=== PATIENT | male | born 1950 | race Caucasian/White ===

== ENCOUNTER 2024-01-02 10:02 | Emergency (ER) | payer MEDICARE, OTHER, SELFPAY ==
[2024-01-02 10:11] VITALS: BP 148/100
[2024-01-02 10:40] LABS: % Basophils 1.1 % (0-2); % Eosinophils 8.6 % (0-6); % Immature Granulocytes 0.5 % (0-0.5); % Lymphocytes 18.9 % (20.5-51.1); % Monocytes 7.1 % (1.7-9.3); % Neutrophils 63.8 % (42.2-75.2); Absolute Basophils 0.1 10^3/uL (0-0.2); Absolute Eosinophils 0.8 10^3/uL (0-0.7); Absolute Immature Granulocytes 0.1 10^3/uL (0-0.05); Absolute Lymphocytes 1.9 10^3/uL (1.2-3.4); Absolute Monocytes 0.7 10^3/uL (0.1-0.6); Absolute Neutrophils 6.2 10^3/uL (1.4-6.5); Hematocrit 34.3 % (39.0-52.0); Hemoglobin 11.6 g/dL (13.0-18.0); Mean Corp Hgb Conc. 33.8 g/dL (33.0-37.0); Mean Corpuscular Hgb 29.7 pg (27.0-31.0); Mean Corpuscular Volume 87.7 fL (80.0-94.0); Mean Platelet Volume 10.5 fL (7.4-10.4); Nucleated Red Blood Cells % 0 % (-); Platelet Count 237 10^3/uL (130-400); Red Blood Cell Count 3.91 10^6/uL (4.70-6.10); Red Cell Dist. Width 13.2 % (11.5-14.5); White Blood Cell Count 9.8 10^3/uL (4.8-10.8)
[2024-01-02 10:45] VITALS: BP 121/84
[2024-01-02 10:48] LABS: ALT (SGPT) 16 U/L (0-50); AST (SGOT) 18 U/L (17-59); Albumin 4.3 g/dl (3.5-5.0); Alkaline Phosphatase 39 U/L (38-126); Blood Urea Nitrogen 30 mg/dl (9-20); Calcium 9.9 mg/dl (8.4-10.2); Carbon Dioxide 22 mmol/L (22-30); Chloride 105 mmol/L (98-107); Glucose 185 mg/dl (70-99); Potassium 5.3 mmol/L (3.5-5.1); Sodium 135 mmol/L (135-145); Total Bilirubin 0.4 mg/dl (0.2-1.3); Total Protein 6.7 g/dl (6.3-8.2); eGFR 39.25
[2024-01-02 10:59] LABS: Troponin I < 0.012 ng/ml
--- NOTE | 2024-01-02 10:59 | ED.GENMED ---
History of Present Illness
<Kiran Qureshi PA-C - Last Filed: 01/02/24 15:41>
General
Chief Complaint: Chest Pain
Time Seen by Provider: 01/02/24 10:41
History of Present Illness
History of Present Illness:
Patient is a 73-year-old male with past medical history of hypertension, hyperlipidemia, diverticulosis, history of pancreatitis, and insulin-dependent diabetes mellitus, here today for evaluation of dizziness and chest pain that began this morning
after the patient woke up at approximately 6 AM. Patient states he felt so dizzy to the point where he was going to pass out. He found himself attempting to hold onto objects in the room so he did not fall over. He denies falling over, sustaining
any head injuries, or passing out. He did note mild chest discomfort along the left anterior chest wall that lasted for several minutes and self resolved. He noted a second similar episode as well which self resolved. No breathing difficulties.
No weakness. No vomiting. No fevers or other URI symptoms. The patient states he took his blood pressure on multiple occasions sitting down in the kitchen and his blood pressure was noted to be between 50s to 70s systolic with a heart rate of
approximately 150. Patient denies taking any extra medications by accident. Patient ultimately came to the emergency department by private vehicle secondary to his symptoms.
Past History
<Kiran Qureshi PA-C - Last Filed: 01/02/24 15:41>
Past History
ED Past Medical History: HTN, Hypercholesterolemia and NIDDM
ED Past Surgical History: None
Social History
Tobacco: Non-smoker
Alcohol: Occasional
Personal:
Living: with family
Review of Systems
<Kiran Qureshi PA-C - Last Filed: 01/02/24 15:41>
Review of Systems
All Other Systems: ROS reviewed and negative except as documented in HPI and ROS
Phy Exam
<Kiran Qureshi PA-C - Last Filed: 01/02/24 15:41>
Physical Exam
Physical Exam:
GENERAL: Alert , in no apparent distress
EYE: pupils equal and reactive
NECK: Supple, no significant adenopathy.
ENT: o/p clr, mmm.
CARDIAC: Regular rate and rhythm .
LUNGS: Clear breath sounds bilaterally, no acute respiratory distress, no wheezes/rales/rhonchi
ABDOMEN: Soft, without focal tenderness, no r/g, no cvat
NEUROLOGICAL: Alert and oriented, no focal neuro deficits, cranial nerves II through XII intact, moving all extremities, normal sensation and motor
SKIN: Warm and dry, skin intact.
MUSCULOSKELETAL: No edema, well perfused.
PSYCH: Normal and appropriate interaction.
Scores
<Kiran Qureshi PA-C - Last Filed: 01/02/24 15:41>
Heart Score for Chest Pain Patients
STEMI patient?: No
History: Slightly or Non-Suspicious
ECG: Nonspecific Repolarization
Age: >/= 65 years
Risk Factors: >/= 3 Risk Factors or History of CAD
Troponin: </= Normal Limit
Heart Score for Chest Pain Patients: 5
Heart Score Risk: 20.3% MACE over next 6 weeks
Course
<Kiran Qureshi PA-C - Last Filed: 01/02/24 15:41>
Orders/Labs/Results
Orders:
Orders
01/02/24 10:04
ECG [Electrocardiogram (*1)] Urgent
Reason for Study: Chest Pain
EKG- Treatment ONCE
01/02/24 10:27
CMP [Comprehensive Metabolic Panel] Urgent
Complete Blood Count/With Diff Urgent
Magnesium Urgent
Comment: ADD
Phosphorus Urgent
Comment: ADD
TSH Reflex To Free T4 Urgent
Comment: ADD
Troponin I Urgent
01/02/24 10:58
Add On- LAB Urgent
Tests Added?: magnesium, phosphorus, TSH w reflex T4
01/02/24 11:03
Electrocardiogram (*1) Urgent
Reason for Study: Abnormal EKG
EKG- Treatment ONCE
Abnormal Lab Results
01/02/24
10:27
RBC 3.91 L 10^6/uL
(4.70-6.10)
Hgb 11.6 L g/dL
(13.0-18.0)
Hct 34.3 L %
(39.0-52.0)
MPV 10.5 H fL
(7.4-10.4)
Abs Immat Gran (auto) 0.1 H 10^3/uL
(0-0.05)
Absolute Monos (auto) 0.7 H 10^3/uL
(0.1-0.6)
Absolute Eos (auto) 0.8 H 10^3/uL
(0-0.7)
Lymphocytes % 18.9 L %
(20.5-51.1)
Eosinophils % 8.6 H %
(0-6)
Potassium 5.3 H mmol/L
(3.5-5.1)
BUN 30 H mg/dl
(9-20)
Creatinine 1.8 H mg/dL
(0.7-1.3)
Glucose 185 H mg/dl
(70-99)
Magnesium 1.5 L mg/dl
(1.6-2.3)
01/02/24 10:27
01/02/24 10:27
Vital Signs
Initial and Last Documented VS:
Initial Vital Signs
Temp Pulse Resp BP Pulse Ox
98.0 F 90 18 148/100 99
01/02/24 10:11 01/02/24 10:11 01/02/24 10:11 01/02/24 10:11 01/02/24 10:11
Last Documented Vital Signs
Temp Pulse Resp BP Pulse Ox
98.0 F 74 16 118/68 97
01/02/24 10:11 01/02/24 14:00 01/02/24 14:03 01/02/24 14:00 01/02/24 14:00
<Jinny Humphreys MD - Last Filed: 01/02/24 15:01>
Orders/Labs/Results
Orders:
Orders
01/02/24 10:04
ECG [Electrocardiogram (*1)] Urgent
Reason for Study: Chest Pain
EKG- Treatment ONCE
01/02/24 10:27
CMP [Comprehensive Metabolic Panel] Urgent
Complete Blood Count/With Diff Urgent
Magnesium Urgent
Comment: ADD
Phosphorus Urgent
Comment: ADD
TSH Reflex To Free T4 Urgent
Comment: ADD
Troponin I Urgent
01/02/24 10:58
Add On- LAB Urgent
Tests Added?: magnesium, phosphorus, TSH w reflex T4
01/02/24 11:03
Electrocardiogram (*1) Urgent
Reason for Study: Abnormal EKG
EKG- Treatment ONCE
Abnormal Lab Results
01/02/24
10:27
RBC 3.91 L 10^6/uL
(4.70-6.10)
Hgb 11.6 L g/dL
(13.0-18.0)
Hct 34.3 L %
(39.0-52.0)
MPV 10.5 H fL
(7.4-10.4)
Abs Immat Gran (auto) 0.1 H 10^3/uL
(0-0.05)
Absolute Monos (auto) 0.7 H 10^3/uL
(0.1-0.6)
Absolute Eos (auto) 0.8 H 10^3/uL
(0-0.7)
Lymphocytes % 18.9 L %
(20.5-51.1)
Eosinophils % 8.6 H %
(0-6)
Potassium 5.3 H mmol/L
(3.5-5.1)
BUN 30 H mg/dl
(9-20)
Creatinine 1.8 H mg/dL
(0.7-1.3)
Glucose 185 H mg/dl
(70-99)
Magnesium 1.5 L mg/dl
(1.6-2.3)
01/02/24 10:27
01/02/24 10:27
Vital Signs
Initial and Last Documented VS:
Initial Vital Signs
Temp Pulse Resp BP Pulse Ox
98.0 F 90 18 148/100 99
01/02/24 10:11 01/02/24 10:11 01/02/24 10:11 01/02/24 10:11 01/02/24 10:11
Last Documented Vital Signs
Temp Pulse Resp BP Pulse Ox
98.0 F 74 16 118/68 97
01/02/24 10:11 01/02/24 14:00 01/02/24 14:03 01/02/24 14:00 01/02/24 14:00
<Kiran Qureshi PA-C - Last Filed: 01/02/24 15:41>
MDM/Problems Addressed
Differential Diagnosis Includes:
Patient is a 73-year-old male with past medical history of hypertension, hyperlipidemia, diverticulosis, history of pancreatitis, and insulin-dependent diabetes mellitus, here today for evaluation of dizziness and chest pain that began this morning
after the patient woke up at approximately 6 AM. Overall, patient appears very well. Vital signs initially remarkable for a blood pressure of 148/100. Heart rate 90. Repeat blood pressure in my evaluation noted to be normal at 121/84. Heart
rate 89. The patient is neurologically intact. An EKG was obtained in triage which reveals evidence of a wide QRS tachycardia with a right bundle branch block and a ventricular rate of 136. QRS duration [address] patient on cardiac
monitor. Will obtain screening labs and chest x-ray. Will repeat EKG given heart rate has now normalized. Will closely monitor and reassess.
01/02/2024 1403: Screening labs reveal mild anemia with a hemoglobin of 11.6. Potassium 5.3. BUN 30/creatinine 1.8 which is grossly consistent with most recent creatinine. Glucose elevated at 185. Magnesium 1.5. Repeat EKG reveals normalization
of the patient's heart rate. No ischemic changes. Case was discussed with cardiology attending, Dr. Abdulkadir Martinez. EKG was reviewed and he feels initial rhythm was likely SVT with right bundle branch block. Cardiology does not recommend
admission at this time if the patient is stable and asymptomatic and recommends close outpatient follow-up via the chest pain hotline. Case was discussed with ED attending, Dr. Humphreys, who evaluated patient at bedside. Patient well-appearing and
has had no recurrence of tachycardia or hypotension. Plan will be for discharge with recommendations for close follow-up with cardiology and supportive measures. Patient voiced understanding of the above plan. He appears well and stable for
discharge. All questions answered.
<Kiran Qureshi PA-C - Last Filed: 01/02/24 15:41>
*Critical Care Note
Total Time (30-74mins, 75-104mins- exclusive of procedures): Not Applicable
ED Attending Note
<Kiran Qureshi PA-C - Last Filed: 01/02/24 15:41>
-
Portions of this chart may have been created with voice recognition software.� Occasional wrong word or��sound alike� substitutions may have occurred due to the inherent limitations of voice recognition software.
<Jinny Humphreys MD - Last Filed: 01/02/24 15:01>
ED Attending Note
Patient seen and examined by attending physician: Yes
I performed the substantive portion of visit, reviewed & personally made and approve the management plan that is documented in note by myself or SANDRA.: Yes
ED Attending Note:
73-year-old male with an episode of lightheadedness and left-sided chest pain described as 'irritation' now fully resolved. The chest discomfort lasted approximately 5 to 10 minutes and was not associated with other symptoms such as diaphoresis,
nausea, vomiting, dyspnea, headache, neck pain, back pain, etc. Patient says he checked his vitals at home and he had an elevated heart rate in the 150s and was hypotensive. Here patient's initial ECG is sinus tach in the 130s with baseline right
bundle branch block, no acute ischemia. This is all since normalized. Troponin unremarkable. Given short-lived chest pain and otherwise unremarkable associated symptoms strongly doubt ACS. Appears patient is having episodes of tachycardia. Case
discussed with cardiology, recommendation to follow-up closely with them, recognizing patient is currently on a beta-enrique. Baseline renal insufficiency noted and patient made aware of the follow-up and reasons to return to the ER. Patient is
awake alert pleasant grossly neuro intact.
Discharge Plan
Departure
Patient Disposition: Home (Routine Discharge)
Date of Disposition: 01/02/24
Time of Disposition: 15:00
Patient with high blood pressure during this ER visit?: Yes
Condition: Good
Discharge Problem:
Chest pain
Instructions: Chest Pain CBC Follow Up
Prescriptions:
No Action
labetalol 200 MG tablet
400 mg PO BID
spironolactone 25 MG tablet
25 mg PO BID
tadalafil [Cialis] 5 MG tablet
1 tab PO DAILYPRN PRN (Reason: ED)
omeprazole 20 mg Tablet,Delayed Release (Dr/Ec)
20 mg PO DAILY PRN (Reason: reflux)
metformin 500 mg Tablet
1,000 mg PO DAILY
metformin 500 mg tablet
500 mg PO DAILY@1700
atorvastatin 20 mg Tablet
20 mg PO QPM
Testopel 75 mg Pellet
75 mg SC .[id number]
ketorolac 0.5 % drops
1 drp RIGHT EYE QID
prednisolone acetate 1 % drops,suspension
1 drp RIGHT EYE QID
cyanocobalamin (vitamin B-12) 1,000 mcg/mL solution
1,000 mcg IM MONTHLY
folic acid 1 mg tablet
1 mg PO DAILY
Referrals:
Geoffrey Young MD [Family Provider] - Follow up in 2-3 days
Activity Restrictions/Additional Instructions:
IF YOU DEVELOP DIZZINESS, CHEST PAIN, SHORTNESS OF BREATH, FEVER, OR OTHER WORRISOME SIGNS, PLEASE RETURN TO THE ER IMMEDIATELY. YOUR [facility] AND [facility] REPAIRER WILL REACH OUT TO FOR CLOSE FOLLOW UP.
Interventions
Interventions:
*Risk Screen - Suicide Last Done: 01/02/24 10:47
*General Assessment Last Done: 01/02/24 10:47
*Neglect/Abuse Screening Last Done: 01/02/24 10:47
*ED COVID-19 Vaccine History Last Done: 01/02/24 10:47
*Nursing Disposition Last Done: 01/02/24 15:05
ED- Cardiac Assessment Last Done: 01/02/24 10:47
Discharge Date and Time
Discharge Date/Time: 01/02/24 15:05
Print Language: MOZAMBICAN
[2024-01-02 12:00] VITALS: BP 111/76
[2024-01-02 13:00] VITALS: BP 109/66
[2024-01-02 13:45] LABS: Magnesium 1.5 mg/dl (1.6-2.3); Phosphorus 3.7 mg/dl (2.5-4.5)
[2024-01-02 14:00] VITALS: BP 118/68
[2024-01-02 16:06] LABS: TSH Reflex To Free T4 1.98 uIU/ml (0.47-4.68)
== END 2024-01-02 15:05 | disposition home or self-care (01) ==
LOC: EMR 10:02
PROVIDERS: Emergency Medicine; EMERGENCY PHYSICIAN Emergency Medicine; FAMILY PHYSICIAN Internal Medicine
DX: R07.89 Other chest pain (principal); R42 Dizziness and giddiness; I10 Essential (primary) hypertension; K57.90 Diverticulosis of intestine, part unspecified, without perforation or abscess without bleeding; E11.9 Type 2 diabetes mellitus without complications; E78.00 Pure hypercholesterolemia, unspecified; Z87.19 Personal history of other diseases of the digestive system; Z91.013 Allergy to seafood
CPT/HCPCS: 99284; 80053; 83735; 84100; 84443; 84484; 85025; 93005

== ENCOUNTER → 2024-01-22 12:07 | Outpatient (REF) | payer MEDICARE, OTHER, SELFPAY | LOC: PET 12:07 | PROVIDERS: ATTENDING PHYSICIAN Internal Medicine Cardiovascular Disease | DX: R07.2 Precordial pain (principal); I47.10 Supraventricular tachycardia, unspecified; I45.2 Bifascicular block | CPT/HCPCS: 93306 ==

== ENCOUNTER 2024-05-16 00:11 | Emergency (ER) | payer MEDICARE, OTHER, SELFPAY ==
[2024-05-16 00:18] VITALS: BP 113/78
[2024-05-16 00:48] LABS: % Basophils 0.9 % (0-2); % Eosinophils 3.7 % (0-6); % Immature Granulocytes 0.8 % (0-0.5); % Monocytes 10.9 % (1.7-9.3); % Neutrophils 61.7 % (42.2-75.2); Absolute Basophils 0.1 10^3/uL (0-0.2); Absolute Eosinophils 0.3 10^3/uL (0-0.7); Absolute Immature Granulocytes 0.1 10^3/uL (0-0.05); Absolute Lymphocytes 1.9 10^3/uL (1.2-3.4); Absolute Monocytes 0.9 10^3/uL (0.1-0.6); Absolute Neutrophils 5.3 10^3/uL (1.4-6.5); Hematocrit 33.8 % (39.0-52.0); Mean Corp Hgb Conc. 32.5 g/dL (33.0-37.0); Mean Corpuscular Volume 92.1 fL (80.0-94.0); Mean Platelet Volume 9.8 fL (7.4-10.4); Nucleated Red Blood Cells % 0 % (-); Platelet Count 202 10^3/uL (130-400); Red Blood Cell Count 3.67 10^6/uL (4.70-6.10); Red Cell Dist. Width 13.5 % (11.5-14.5); White Blood Cell Count 8.6 10^3/uL (4.8-10.8)
[2024-05-16 01:03] LABS: ALT (SGPT) 24 U/L (0-50); AST (SGOT) 30 U/L (17-59); Albumin 4.3 g/dl (3.5-5.0); Alkaline Phosphatase 40 U/L (38-126); Blood Urea Nitrogen 22 mg/dl (9-20); Calcium 8.6 mg/dl (8.4-10.2); Carbon Dioxide 22 mmol/L (22-30); Chloride 101 mmol/L (98-107); Glucose 136 mg/dl (70-99); Potassium 3.8 mmol/L (3.5-5.1); Sodium 138 mmol/L (135-145); Total Bilirubin 0.3 mg/dl (0.2-1.3); Total Protein 6.8 g/dl (6.3-8.2); eGFR 45.21
[2024-05-16 03:23] LABS: Glucose - Point of Care 129 mg/dl (70-99)
[2024-05-16 03:30] VITALS: BP 129/74
[2024-05-16 03:55] VITALS: BMI 31.2
[2024-05-16 05:00] VITALS: BP 109/56
--- NOTE | 2024-05-16 06:11 | ED.GENMED ---
History of Present Illness
General
Chief Complaint: Blood Sugar Problem
Source: patient and family
Exam Limitations: none
Time Seen by Provider: 05/16/24 04:17
Nursing documentation reviewed up to this point in time: agreed with
History of Present Illness
History of Present Illness:
Pleasant 73-year-old male presents to the emergency department after hypoglycemic episode. Patient went to bed tonight and was feeling little off. noted that he was diaphoretic so she called 911. Patient was found to have a blood sugar of 50
by EMS. Patient consumed a glucose packet and a granola bar. Sugar was 58mg/dl 15 minutes later. EMS gave 75 cc of D10 and patient returned to baseline mental status. Upon arrival blood sugar was 220. Patient has a physician here and a
physician at his home in [place]. His physician in [place] started him on metformin 2 pills in the morning and 1 pill in the evening, glipizide 1 pill in the morning, and Lantus 45 mg in the morning. Patient ate lunch but did not eat dinner last
evening. Denies any other complaints
Past History
Past History
ED Past Medical History: HTN, Hypercholesterolemia and NIDDM
ED Past Surgical History: None
Social History
Tobacco: Non-smoker
Alcohol: Occasional
Personal:
Living: with family
Review of Systems
Review of Systems
Allergies reviewed?: Yes
All Other Systems: Not applicable
Constitutional: Reports fatigue
EENT: Reports no symptoms
Respiratory: Reports no symptoms
Cardiac: Reports no symptoms
ABD/GI: Reports no symptoms
: Reports no symptoms
Musculoskeletal: Reports no symptoms
Skin: Reports no symptoms
Neurological: Reports no symptoms
Endocrine: Reports no symptoms
Hematologic/Lymphatic: Reports no symptoms
Psychiatric: Reports no symptoms
Phy Exam
General Physical Exam
General Presentation: well appearing and no apparent distress
General Skin: warm and dry
General Habitus: normal
General Mental: alert
General Hydration: appears well hydrated
ENT Exam
ENT Exam: EOMI, pharynx normal, neck supple and normocephalic
Eye Exam
Eye Exam: PERRL, cornea clear and conjunctiva normal
Cardiovascular Exam
Cardiovascular Exam: regular rate/rhythm, no edema, no murmur and normal peripheral pulses
Pulmonary Exam
Pulmonary Exam: lungs clear, no respiratory distress, no rales, no crackles, no rhonchi, no stridor, no wheezing and no cough
Gastrointestinal Exam
Gastrointestinal Exam: normal bowel sounds, non tender, soft, no organomegaly, no pulsatile mass and non distended
Neurological Exam
Neurological Exam: alert, oriented x3, no motor deficits and speech normal
Musculoskeletal Exam
Musculoskeletal Exam: full ROM and no edema
Skin Exam
Skin Exam: normal color, warm/dry, no rash and no petechia
Psychiatric Exam
Psychiatric Exam: normal mood/affect
Course
Orders/Labs/Results
Orders:
Orders
05/16/24 00:41
Complete Blood Count/With Diff Urgent
Comprehensive Metabolic Panel Urgent
Abnormal Lab Results
05/16/24 05/16/24
00:41 03:21
RBC 3.67 L 10^6/uL
(4.70-6.10)
Hgb 11.0 L g/dL
(13.0-18.0)
Hct 33.8 L %
(39.0-52.0)
MCHC 32.5 L g/dL
(33.0-37.0)
Abs Immat Gran (auto) 0.1 H 10^3/uL
(0-0.05)
Absolute Monos (auto) 0.9 H 10^3/uL
(0.1-0.6)
Immature Gran % 0.8 H %
(0-0.5)
Monocytes % 10.9 H %
(1.7-9.3)
BUN 22 H mg/dl
(9-20)
Creatinine 1.6 H mg/dL
(0.7-1.3)
Glucose 136 H mg/dl
(70-99)
POC Glucose 129 H mg/dl
(70-99)
05/16/24 00:41
05/16/24 00:41
Vital Signs
Initial and Last Documented VS:
Initial Vital Signs
Temp Pulse Resp BP Pulse Ox
97.2 F 83 16 113/78 98
05/16/24 00:18 05/16/24 00:18 05/16/24 00:18 05/16/24 00:18 05/16/24 00:18
Last Documented Vital Signs
Temp Pulse Resp BP Pulse Ox
97.2 F 87 16 109/56 95
05/16/24 00:18 05/16/24 05:00 05/16/24 05:00 05/16/24 05:00 05/16/24 05:00
*Critical Care Note
Total Time (30-74mins, 75-104mins- exclusive of procedures): Not Applicable
ED Attending Note
-
Portions of this chart may have been created with voice recognition software.� Occasional wrong word or��sound alike� substitutions may have occurred due to the inherent limitations of voice recognition software.
Discharge Plan
Departure
Patient Disposition: Home (Routine Discharge)
Date of Disposition: 05/16/24
Time of Disposition: 06:17
Patient with high blood pressure during this ER visit?: No
Condition: Good
Discharge Problem:
Hypoglycemia
Instructions: Low Blood Sugar, Adult (DC), Diabetes Type 1, Adult (DC), Type 2 Diabetes (DC)
Prescriptions:
No Action
labetalol 200 MG tablet
400 mg PO BID
spironolactone 25 MG tablet
25 mg PO BID
tadalafil [Cialis] 5 MG tablet
1 tab PO DAILYPRN PRN (Reason: ED)
omeprazole 20 mg Tablet,Delayed Release (Dr/Ec)
20 mg PO DAILY PRN (Reason: reflux)
metformin 500 mg Tablet
1,000 mg PO DAILY
metformin 500 mg tablet
500 mg PO DAILY@1700
atorvastatin 20 mg Tablet
20 mg PO QPM
Testopel 75 mg Pellet
75 mg SC .[id number]
ketorolac 0.5 % drops
1 drp RIGHT EYE QID
prednisolone acetate 1 % drops,suspension
1 drp RIGHT EYE QID
cyanocobalamin (vitamin B-12) 1,000 mcg/mL solution
1,000 mcg IM MONTHLY
folic acid 1 mg tablet
1 mg PO DAILY
Referrals:
Geoffrey Young MD [Family Provider] -
Activity Restrictions/Additional Instructions:
It was a pleasure meeting you and taking part in your care. We hope for your continued healing and wellness.
Please read discharge instructions in their entirety. However, they are for general education and may not describe your exact diagnosis at discharge. Information on your ER visit and medical conditions were discussed with you along with appropriate
follow up information...
If indicated, please take your medications as instructed and indicated on discharge paperwork.
Please schedule a follow up appointment as directed. Call to schedule an appointment
Please return to the emergency department with ANY change in, persisting, or worsening of symptoms. If any of your symptoms do not improve, or persist, or become more severe within 6-12 hours, please return to the emergency department for further
care.
Please return to the emergency department if you develop a headache, neck pain/stiffness, fever greater than 100.4F, chest pain, shortness of breath, persistent nausea, vomiting, slurred speech, difficulty walking, numbness/tingling, weakness, signs
of infection or any other symptoms that are worrisome to you.
If you have any questions or concerns please do not hesitate to call the Hospital at or E-mail me directly at [email or web address]
Interventions
Interventions:
*Risk Screen - Suicide Last Done: 05/16/24 00:18
*General Assessment Last Done: 05/16/24 00:18
*Neglect/Abuse Screening Last Done: 05/16/24 00:18
ED- Fall Risk Assessment Last Done: 05/16/24 00:18
*ED COVID-19 Vaccine History Last Done: 05/16/24 00:18
ED- Neurological Assessment Last Done: 05/16/24 03:30
Discharge Date and Time
Print Language: [email or web address]
[2024-05-16 06:15] LABS: Glucose - Point of Care 98 mg/dl (70-99)
== END 2024-05-16 06:42 | disposition home or self-care (01) ==
LOC: EMR 00:11
PROVIDERS: EMERGENCY PHYSICIAN Student in an Organized Health Care Education/Training Program; FAMILY PHYSICIAN Internal Medicine
DX: E11.649 Type 2 diabetes mellitus with hypoglycemia without coma (principal)
CPT/HCPCS: 99283; 80053; 82962; 85025

== ENCOUNTER 2024-06-30 21:56 | Inpatient (IN) | payer MEDICARE, OTHER, SELFPAY ==
[2024-06-30 15:40] VITALS: BP 123/66
[2024-06-30 16:11] LABS: % Basophils 0.3 % (0-2); % Immature Granulocytes 0.5 % (0-0.5); % Lymphocytes 6.1 % (20.5-51.1); % Monocytes 2.4 % (1.7-9.3); % Neutrophils 89.7 % (42.2-75.2); Absolute Eosinophils 0.1 10^3/uL (0-0.7); Absolute Lymphocytes 0.5 10^3/uL (1.2-3.4); Absolute Monocytes 0.2 10^3/uL (0.1-0.6); Absolute Neutrophils 7.8 10^3/uL (1.4-6.5); Hematocrit 37.5 % (39.0-52.0); Hemoglobin 12.4 g/dL (13.0-18.0); Mean Corp Hgb Conc. 33.1 g/dL (33.0-37.0); Mean Corpuscular Volume 90.8 fL (80.0-94.0); Mean Platelet Volume 10.2 fL (7.4-10.4); Nucleated Red Blood Cells % 0 % (-); Platelet Count 158 10^3/uL (130-400); Red Blood Cell Count 4.13 10^6/uL (4.70-6.10); Red Cell Dist. Width 14.1 % (11.5-14.5); White Blood Cell Count 8.7 10^3/uL (4.8-10.8)
[2024-06-30 16:32] LABS: ALT (SGPT) 63 U/L (0-50); AST (SGOT) 157 U/L (17-59); Albumin 4.7 g/dl (3.5-5.0); Alkaline Phosphatase 71 U/L (38-126); Blood Urea Nitrogen 27 mg/dl (9-20); Calcium 9.9 mg/dl (8.4-10.2); Carbon Dioxide 24 mmol/L (22-30); Chloride 98 mmol/L (98-107); Glucose 124 mg/dl (70-99); Lipase 235 U/L (23-300); Potassium 4.7 mmol/L (3.5-5.1); Sodium 137 mmol/L (135-145); Total Bilirubin 3.1 mg/dl (0.2-1.3); Total Protein 7.6 g/dl (6.3-8.2); eGFR 45.21
[2024-06-30] MEDS: ZOFRAN 4 MG IV (18:15)
[2024-06-30] MEDS: NSS 1000 IV (18:15)
[2024-06-30] MEDS: MORPHINE SULFATE 4 MG IV (18:15)
[2024-06-30 18:39] LABS: Direct Bilirubin 2.1 mg/dl (0.0-0.4)
--- NOTE | 2024-06-30 19:18 | ED.GENMED ---
History of Present Illness
General
Chief Complaint: Abdominal Symptoms
Source: patient and spouse ( at bedside)
Exam Limitations: none
Time Seen by Provider: 06/30/24 17:16
Nursing documentation reviewed up to this point in time: agreed with
History of Present Illness
History of Present Illness:
Patient is a 73-year-old male with history hypertension, hyperlipidemia, type 2 diabetes presenting to the emergency department for evaluation of upper abdominal pain. Patient states this morning he did wake up with some mid back discomfort. After
lunch today he had acute onset severe upper abdominal pain associate with nausea. By arrival to emergency department symptoms have improved mildly although are still present. Patient denies any known fever or chills. No associated chest pain or
shortness of breath.
Patient does report history of a similar episode a few years ago where he was diagnosed with gallstone pancreatitis in [place].
Past History
Past History
ED Past Medical History: HTN, Hypercholesterolemia and NIDDM
ED Past Surgical History: None
Social History
Tobacco: Non-smoker
Alcohol: Occasional
Personal:
Living: with family
Review of Systems
Review of Systems
Allergies reviewed?: Yes
All Other Systems: ROS reviewed and negative except as documented in HPI and ROS
Phy Exam
Physical Exam
Physical Exam:
Vitals: Patient's vital signs are stable. Afebrile
General: Patient is well appearing, no acute distress. Nontoxic appearing
Skin: Warm and dry, no rashes or lesions
Head: Normocephalic, atraumatic
Eyes: Sclera nonicteric. EOMs intact. No nystagmus.
Throat: Protecting airway
Neck: Normal ROM, no cervical spine tenderness, no meningismus
Cardiac: Regular rate and rhythm, no murmurs.
Pulm: Normal respiratory effort, no wheezes, rales, rhonchi heard on exam.
Abdomen: Abdomen mildly distended. Soft with very mild epigastric tenderness. Negative Barnes sign. No rebound tenderness or guarding.
Extremities: No evidence of cyanosis or edema. Palpable DP pulses bilaterally
Neuro: AAOx3. Grossly intact.
Psychiatric: Normal affect.
Course
Orders/Labs/Results
Orders:
Orders
06/30/24 Dinner
Cholesterol Lowering
At Your Request: Limited Participation
Cholesterol Lowering: Sodium, 2 Gram
06/30/24 15:52
Complete Blood Count/With Diff Urgent
Comprehensive Metabolic Panel Urgent
Direct Bilirubin Urgent
Comment: ADD ON
Lipase Urgent
06/30/24 18:02
Electrocardiogram (*1) Urgent
Reason for Study: Abdominal Pain
EKG- Treatment ONCE
Morphine Sulfate 4 mg IV NOW STA
Ondansetron Injectable [Zofran] 4 mg IV NOW STA
US Abdomen Complete/Upper Urgent
Comment:
Reason For Exam: Upper abdominal pain, hx gallstones
06/30/24 18:03
0.9% Sodium Chloride 1000 ml [Nss] 1,000 ml IV BOLUS
06/30/24 21:02
Admit/Transfer Patient As Directed
Co-Sign Provider:
Level of Care: Inpatient admission
Assign to:: Medical/Surgical
Physician / Group: Nelida Spears
Diagnosis: Cholelithiasis, Common bile duct dilatation
Reason for Hospitalization: Cholelithiasis, Common bile duct dilatation
Expected length of stay greater than two midnights?: Yes
ELOS- Estimated Length of Stay in days: 2
I certify the patient meets the requirements for IP care: Yes
PRN Pain Medication Management As Directed
May give lesser potent ordered pain med per pt: Yes
preference::
Protocol:: Medication orders for pain may be administered in a
manner that supports deferring to patient preference
when the pt is:
- Requesting an ordered lesser potent pain medication.
Least to most potent pain medications are defined
as: acetaminophen < NSAID < tramadol < opioids
(morphine, oxycodone, hydromorphone).
- Requesting a lesser dose of the same medication IF
ORDERED.
- Requesting a less intrusive route of administration
if both routes are prescribed by the provider (PO <
IV).
06/30/24 21:04
Code Status As Directed
Resuscitation Status: Full Code
06/30/24 22:00
Flush (0.9% Sodium Chloride) [Flush (Nss)] See Dose Instructions IV PER PROTOCOL
06/30/24 22:17
Acetaminophen [Tylenol] 650 mg PO Q4HPRN PRN
Dextrose 50%-Water [Dextrose 50% Syringe] 12.5 grams IV [id number] PRN
Glucagon [GlucaGen] 1 mg IM PRN PRN
HYDROmorphone [Dilaudid] 0.5 mg IV Q4HPRN PRN
Insulin Glargine Lantus [Lantus] 20 units Subcutaneous Insulin Syringe [Syringe-Insulin] 0 unit SC ONCE
Lactated Ringers [Lr] 1,000 ml IV 75 mls/hr
Ondansetron Injectable [Zofran] 4 mg IV Q6HPRN PRN
Oxycodone [Roxicodone] 5 mg PO Q4HPRN PRN
06/30/24 22:17
GASTROINTESTINAL CONSULT Routine
Consulting Provider: Faby Buck
Was physician already notified: Yes
MR Mrcp Without Routine
Comment:
Reason For Exam: Cholelithiasis
Recent pill cam endoscopy?: No
Activity As Directed
Activity Level: Out of Bed-Early Mobility
Bedside Glucose Monitoring As Directed
Frequency: AC&HS
Additional Instructions:: Change to q6h if pt on TPN, tube feeding or not eating
Vital Signs As Directed
Frequency: Per unit guidelines
Weight As Directed
Frequency: Once
DX Deep Vein Thrombosis Video Routine
06/30/24 22:33
Pantoprazole [Protonix] 40 mg PO DAILYPRN PRN
07/01/24 00:00
Heparin 5,000 units SC Q8
07/01/24 Breakfast
NPO
Allow oral meds: Yes
Allow clear liquids: Sips of Clears
NPO with Ice Chips: Yes
Complete Blood Count/No Diff IN AM
Comprehensive Metabolic Panel IN AM
Glycohemoglobin (HgbA1c) IN AM
Lipase IN AM
07/01/24 07:30
Insulin Aspart Corrective Low [Novolog Flexpen-Low Resistance] See Protocol SC AC
07/01/24 08:00
Atorvastatin [Lipitor] 20 mg PO DAILY
Dapagliflozin [Farxiga] 10 mg PO DAILY
FOLic ACID [Folvite] 1 mg PO DAILY
Labetalol [Trandate] 400 mg PO BID
Spironolactone [Aldactone] 25 mg PO BID
07/01/24 22:00
insulin glargine [Lantus Solostar U-100 Insulin] 45 unit SC HS
07/30/24 08:00
Cyanocobalamin 1,000 mcg IM MONTHLY
Abnormal Lab Results
06/30/24
15:52
RBC 4.13 L 10^6/uL
(4.70-6.10)
Hgb 12.4 L g/dL
(13.0-18.0)
Hct 37.5 L %
(39.0-52.0)
Absolute Neuts (auto) 7.8 H 10^3/uL
(1.4-6.5)
Absolute Lymphs (auto) 0.5 L 10^3/uL
(1.2-3.4)
Neutrophils % 89.7 H %
(42.2-75.2)
Lymphocytes % 6.1 L %
(20.5-51.1)
BUN 27 H mg/dl
(9-20)
Creatinine 1.6 H mg/dL
(0.7-1.3)
Glucose 124 H mg/dl
(70-99)
Total Bilirubin 3.1 H mg/dl
(0.2-1.3)
Direct Bilirubin 2.1 H mg/dl
(0.0-0.4)
AST 157 H U/L
(17-59)
ALT 63 H U/L
(0-50)
06/30/24 15:52
06/30/24 15:52
Vital Signs
Initial and Last Documented VS:
Initial Vital Signs
Temp Pulse Resp BP Pulse Ox
98.5 F 85 18 123/66 98
06/30/24 15:40 06/30/24 15:40 06/30/24 15:40 06/30/24 15:40 06/30/24 15:40
Last Documented Vital Signs
Temp Pulse Resp BP Pulse Ox
99.2 F 94 18 126/70 98
06/30/24 22:40 06/30/24 22:40 06/30/24 22:40 06/30/24 22:40 06/30/24 22:40
MDM/Problems Addressed
Differential Diagnosis Includes:
Not limited to: Cholelithiasis, cholecystitis, choledocholithiasis, pancreatitis, gastritis, peptic ulcer, etc.
MDM/Problems Addressed:
73-year-old male with history as documented presenting with acute onset upper abdominal pain nausea, vomiting after lunch today. Symptoms somewhat improved by arrival to emergency department. He is afebrile. Vital signs are stable. On
exam�patient is well-appearing in no apparent distress. Abdomen is soft with mild epigastric tenderness. Negative Barnes sign. Cardio/pulmonary assessment unremarkable. No lower extremity edema or pain. Basic labs were initiated in triage and
reviewed. CBC without clinically significant abnormalities. CMP does show chronic renal insufficiency as well as hyperbilirubinemia and transaminitis. T. bili 3.1. AST/ALT 157/63. Lipase is normal at 235. Will give IV fluids, pain control.
Ultimately�symptoms consistent with possible biliary colic. He does have history of gallstone pancreatitis. Do not suspect aortic dissection. Will obtain abdominal ultrasound and reassess.
Update: Abdominal ultrasound shows few small gallstones within gallbladder. No evidence to suggest acute cholecystitis. However�CBD was found to be dilated at 9 mm without any visualized stone. Reassessed patient at bedside who reports almost
complete resolution of symptoms. Case was discussed with GI on-call, Dr. Buck. Given abnormal LFTs and elevated bilirubin with CBD dilation visualized on ultrasound�concern for possible CBD stone. Patient will be admitted to hospital service for
MRCP tomorrow. Patient accepted hospital service in stable condition.
Chronic conditions affecting care:
History of gallstone pancreatitis
Acute Exacerbation and/or Progression of Chronic Illness:
Cholelithiasis
*Radiology
Radiology exam reviewed: radiology read reviewed
*Pulse Oximetry
Patient hypoxic: no
*EKG
Interpreted by ED Provider?: Yes
EKG Intrepretation Date: 06/30/24
Interpretation: abnormal
Comparison EKG: changes noted
Heart Rate: 100
Rate: normal
Rhythm: sinus
Bitely: normal axis
Interval: normal interval
QRS Pattern: right bundle branch block
Ischemia: no ischemia
*Wire Threader Interpretation
Rate: Wire Threader- N/A
*Critical Care Note
Total Time (30-74mins, 75-104mins- exclusive of procedures): Not Applicable
Patient Management
Discussion with other providers: Hospitalist and Residential Caregiver (GI- Dr. Buck)
Escalation/DeEscalation of care consider admission/obs:
Admit for MRCP/GI consult given abnormal LFTs with associated CBD dilation on ultra
ED Attending Note
-
Portions of this chart may have been created with voice recognition software.� Occasional wrong word or��sound alike� substitutions may have occurred due to the inherent limitations of voice recognition software.
Discharge Plan
Departure
Patient Disposition: Admit
Date of Disposition: 06/30/24
Time of Disposition: 20:16
Presentation/result/management discussed w/ accepting MD/DO: Hospitalist
Discharge Problem:
Cholelithiasis, Common bile duct dilatation
Interventions
Interventions:
*Risk Screen - Suicide Last Done: 06/30/24 19:23
*General Assessment Last Done: 06/30/24 19:23
*Neglect/Abuse Screening Last Done: 06/30/24 19:23
ED- Fall Risk Assessment Last Done: 06/30/24 22:42
*ED COVID-19 Vaccine History Last Done: 06/30/24 23:59
*Nursing Disposition Last Done: 06/30/24 22:42
QW-Qdlkum-Phingdrlbb Assessment Last Done: 06/30/24 19:23
Discharge Date and Time
Discharge Date/Time: 06/30/24 22:42
[2024-06-30 20:22] VITALS: BP 97/59
--- NOTE | 2024-06-30 20:25 | HPS.HSE ---
Family Physician
-
Family Physician: Geoffrey Young
Chief Complaint
-
upper abdominal pain
History of Present Illness
Patient is a 73-year-old male with past medical history significant for hypertension, hyperlipidemia, DM II who presented to [facility] ED for evaluation of upper abdominal pain. Patient reports that he had a sudden onset of upper abdominal
discomfort associated with nausea and some lightheadedness this afternoon when eating lunch. He reports his pain was very similar to what he experienced 3 years ago in [place] when he was hospitalized for gallstone pancreatitis. Patient states he
had mid back discomfort when he woke this morning but is not sure it is related. Patient denies any cough, chest pain, shortness of breath, vomiting, constipation, diarrhea or urinary symptoms.
Medical History
Past Medical History
Past Medical History: Reports Other
Additional Past Medical History:
essential hypertension
hyperlipidemia
DM II
chronic anemia
CKD II
RBBB
malignant melanoma (2000)
Past Surgical History: Reports Other
Additional Past Surgical History:
Bilateral rotator cuff repair
Colonoscopy 2020
EGD x2 2016
right detached retina repair 06/2021, 08/2021
bilateral cataract extraction
Social History
Tobacco: Former Smoker
Alcohol: Daily (scotch/couple per day)
Drug: None
Personal:
Living: With Family
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
Family History
Family History: Other (Mom: DM; Dad: DM; Brother: polycystic kidney disease, CAD; Brother: AK)
Allergies / Home Medications
Allergies reflects when Allergies were last updated in [employer].
Home Medications with original date entered in [employer]
Allergy/Medication List:
Allergies
Allergy/AdvReac Type Severity Reaction Status Date / Time
shrimp Allergy Mild SWELLING Uncoded 05/16/24 00:17
OF THROAT
Home Medications
labetalol 200 mg tablet 400 mg PO BID Blood Pressure 12/25/16
spironolactone 25 mg tablet 25 mg PO BID Blood Pressure 12/25/16
tadalafil 5 mg tablet (Cialis) 1 tab PO DAILYPRN PRN ED 12/25/16
omeprazole 20 mg tablet,delayed release 20 mg PO DAILYPRN PRN reflux 06/09/17
atorvastatin 20 mg tablet 20 mg PO DAILY High Cholesterol 11/29/22
cyanocobalamin (vitamin B-12) 1,000 mcg/mL injection solution 1,000 mcg IM MONTHLY Supplement 11/29/22
folic acid 1 mg tablet 1 mg PO DAILY Supplement 11/29/22
metformin 500 mg tablet 1,000 mg PO DAILY Diabetes 11/29/22
metformin 500 mg tablet 500 mg PO QPM Diabetes 11/29/22
testosterone 75 mg implant pellet (Testopel) 75 mg SC [id number] Hormonal Agent 11/29/22
empagliflozin 10 mg tablet (Jardiance) 10 mg PO DAILY 06/30/24
ibuprofen 200 mg tablet (Advil) 400 mg PO Q8HPRN PRN mild pain 06/30/24
insulin glargine 100 unit/mL (3 mL) subcutaneous pen (Lantus Solostar U-100 Insulin) 45 unit SC HS 06/30/24
Review of Systems
-
History Source: Patient
Constitutional: Reports No Symptoms
EENT: Reports No Symptoms
Respiratory: Reports No Symptoms
Cardiac: Reports No Symptoms
Abdomen/GI: Reports No Symptoms
: Reports No Symptoms
Musculoskeletal: Reports No Symptoms
Skin: Reports No Symptoms
Neurological: Reports No Symptoms
Endocrine: Reports No Symptoms
Hematologic/Lymphatic: Reports No Symptoms
Psych: Reports No Symptoms
Physical Exam
Vital Signs
Vital Signs
Temp Pulse Resp BP Pulse Ox
98.5 F 105 18 97/59 92
06/30/24 15:40 06/30/24 20:22 02/17/25 20:22 06/30/24 20:22 06/30/24 20:22
Physical Exam
General: Well Developed, Well Nourished, No Apparent Distress, Comfortable, Conversant and Morbidly Obese
HEENT: NormoCephalic, Moist mucous membranes, Atraumatic, Ogema Conjunctivae, Nose Appears Normal and Ears Appear Normal
Respiratory: Clear and Non Labored Respirations
Cardiac: S1/S2, Regular Rhythm and Murmur; No Rub or Gallop
Breast: Deferred by me
GI: Soft, Non Tender and Normal Bowel Sounds; No Organomegaly
Rectal: Deferred by Provider
Genito-urinary: Deferred by me
Musculoskeletal: No Clubbing, No Cyanosis and No Edema
Skin: Warm and IV/Catheter Site; No Rash
Neuro: Awake, Alert, AO x 3 and Nonfocal/grossly intact
Psych: Calm and Intact Judgment/Insight
Laboratory Results
-
06/30/24 15:52
06/30/24 15:52
Laboratory Results
Total Bilirubin 3.1 mg/dl (0.2-1.3) H 06/30/24 15:52
AST 157 U/L (17-59) H 06/30/24 15:52
ALT 63 U/L (0-50) H 06/30/24 15:52
Alkaline Phosphatase 71 U/L (38-126) 06/30/24 15:52
Lipase 235 U/L (23-300) 06/30/24 15:52
Data Reviewed
-
Ultrasound: Report Reviewed by me (Abd: Small gallstones are present. There is a 4 mm gallbladder polyp, for which no further imaging follow-up is recommended. No evidence for gallbladder wall thickening or pericholecystic edema, and the patient
has a negative sonographic Barnes's sign. The common bile duct is dilated, measuring up)
Medical Tests (Nuc Med, Echo, EKG etc): Report Reviewed by me (EKG: NORMAL SINUS RHYTHM RIGHT BUNDLE BRANCH BLOCK)
Lab Data: Labs Reviewed by me (neutro 89.7, BUN 27, Creat 1.6, AST 157, ALT 63, Tot Bili 3.1, Dir Bili 2.1)
Impression/Plan
-
IMPRESSION/PLAN:
#Cholelithiasis w/ dilation of CBD
Abd US: Small gallstones are present. There is a 4 mm gallbladder polyp, for which no further imaging follow-up is recommended.
No evidence for gallbladder wall thickening or pericholecystic edema, and the patient has a negative sonographic Barnes's sign.
The common bile duct is dilated, measuring up to 9 mm. No sonographic evidence for bile duct calculus.
Fatty infiltration of the liver.
Splenic size is in the upper range of normal.
Pancreas is not well-visualized, with no gross abnormality in the peripancreatic region.
AST 157, ALT 63, Total Bilirubin 3.1, Direct Bilirubin 2.1, Lipase 235
- Admit to med/surg
- Consult GI
- plan for MRCP
- NPO after midnight
#essential hypertension
- continue labetalol and spironolactone
#hyperlipidemia
- continue atorvastatin
#DM II
- AccuCheck AC & HS
- SSI
- hold metformin
- continue Jardiance and Lantus
#chronic anemia
hgb 12.4/hct 37.5
- monitor H/H
#CKD II
BUN 27, Creat 1.6
- monitor BMP
#GERD
- continue omeprazole
#RBBB
EKG: NORMAL SINUS RHYTHM
RIGHT BUNDLE BRANCH BLOCK
- continue labetalol
#malignant melanoma (2000)
Code status: Full code
DVT prophylaxis: heparin sq
--- NOTE | 2024-06-30 21:00 | PTCARENOTE ---
pt is aaox3, no c/o pain. pt states he feels dehydrated. pt has hand tremors - states he drinks a scotch daily. Pt is npo for mrcp in am. pt is oriented to room w/ call mendoza in reach
--- NOTE | 2024-06-30 21:06 | W.PN.UPDATE ---
Update Note
Progress Note Update
Patient seen and contraction with EQUIPMENT SPECIALIST. Likely due to pain/physical. I concur with assessment and plan.
This is a 73-year-old with past medical history significant for insulin-dependent diabetes, hypertension, hyperlipidemia, reports history of gallstones as well as episode of pancreatitis several years ago secondary to gallstones complaining of a 1
day history of abdominal pain.
Patient reports acute onset of back and abdominal pain starting at around this afternoon. She took some Pepto-Bismol but had no improvement so came to the emergency department. Denied having any nausea or vomiting or diarrhea. Denies any fevers
or chills. Denies any alcohol use. Patient reports pain is similar to his episode of pancreatitis and was curious about getting a lipase level. Denies any acute changes in his medications.
Patient reports that by the time of arrival in the emergency department is pain has resolved and is currently abdominal pain-free.
In the emergency department he was afebrile, blood pressure was 97/59 with a pulse of 105 satting 92% on room air. ECG showed normal sinus rhythm at 100 with right bundle branch. CBC was unremarkable. Electrolytes BUN and creatinine were stable.
LFTs notable for elevation in total bilirubin to 3.1, indirect of 2.1. Mild elevations of transaminases to 1.7 and 63. Alk phos was 71. Lipase was not elevated.
A right upper quadrant ultrasound shows small gallstones, 4 mm gallbladder polyp and dilation of the common bile duct to 9 mm. No gallbladder distention, pericholecystic fluid or sonographic Barnes sign.
Patient with clearly biliary colic and possibly choledocholithiasis. Although no CBD stone is visualized there is still dilation of the CBD with concern for persistent stone. No signs of cholangitis. No signs of pancreatitis.
Will admit to [facility]
N.p.o. except meds sips and ice chips
Maintenance fluid with LR at 75 cc an hour
Hold metformin and Lantus
Moderate dose sliding scale insulin every 6 hours
IV omeprazole
Labetalol with hold parameters
MRCP in a.m.
Trend LFTs
GI consult
DVT PPX - lovenox sq
Code status - Full Code
[2024-06-30 22:40] VITALS: BP 126/70; BMI 31.2
[2024-06-30] MEDS: HEPARIN 5000 UNITS SC (23:07)
[2024-06-30] MEDS: LR 1000 IV (23:07)
[2024-06-30 23:17] LABS: Glucose - Point of Care 168 mg/dl (70-99)
[2024-07-01] VITALS (10 sets, daily range): BP systolic 98–128; BP diastolic 47–68; BMI 30.2
[2024-07-01 06:39] LABS: Hematocrit 30.9 % (39.0-52.0); Hemoglobin 10.5 g/dL (13.0-18.0); Mean Corpuscular Hgb 30.8 pg (27.0-31.0); Mean Corpuscular Volume 90.6 fL (80.0-94.0); Mean Platelet Volume 10.9 fL (7.4-10.4); Platelet Count 120 10^3/uL (130-400); Red Blood Cell Count 3.41 10^6/uL (4.70-6.10); Red Cell Dist. Width 14.3 % (11.5-14.5); White Blood Cell Count 14.8 10^3/uL (4.8-10.8)
--- NOTE | 2024-07-01 06:59 | CON.GI ---
Addendum entered and electronically signed by Faby Silva Do, MD 07/01/24 12:49:
I saw and examined the patient.
The EQUIPMENT TECHNICIAN's note was reviewed and I agree with the note.
Comment: Ed is a 73yo M with h/o HTN, CKD and DM who was admitted with abd pain that started acutely night of admission. He denies any triggers such as new meds or ETOH intake recently. He lives with and was planning to drive to their home
in [facility] soon. Exam VSS. mild TTP in RUQ, obese abdomen. Labs reviewed LFT rise noted. MRI MRCP with choledocholithiasis
Impression
- Acute choledocholithiasis
- Elevated LFTs
- Remote h/o pancreatitis
- Hepatic steatosis
- Small Hiatal hernia
- HTN
- Obesity
- DM
- ELIO
- remote melanoma
- CKD
Recommendation
- Plan for ERCP today pending anesthesia availability with Dr Dover
- Add cipro and flagyl IV given rise in WBC
- NPO for now
- Surgical consult for CYY
- Serial LFTs
- C/w PPI
Will follow with you
Original Note:
Consultation
-
Date/Time Consultation Requested: 06/30/24 3675
Date/Time Consultation Performed: 07/01/24 0940
Requesting Provider: TREVOR Agosto
Performing Provider: TREVOR Kingston, Faby Buck MD
Reason for Consultation: increased LFT's
Medical History
Chief Complaint / HPI
Chief Complaint: abdominal pain
History of Present Illness:
Pt is a 73yo with hx gallstones, prior pancreatitis, HTN, hypercholesterolemia, malignant melanoma, CKD, NIDDM, colon polyp, diverticulitis, retinal detachment, sleep apnea with onset of abdominal pain. After admission noted with WBC 14,800,
platelets 120, Na 134, creat 1.7, bili 5, AST 195, ALT 88, alk phos 56, lipase 85. US completed with small gallstones with 4 mm gallbladder polyps, neg barnes sign and no GBWT however CBD was dilated to 9mm without signs of CBD stone, fatty liver,
pancreas not well visualized. MRI with MRCP completed with obstructing choledocholithiasis in distal CBD with mild intra and extrahepatic biliary dilatation, moderate diffuse heaptic steatosis, mild perihepatic ascites, mild nusrat
hepatis/portacaval lymphadenopathy, many pancreatic cyst, b/l renal disease, small HH and CM.
in review with patient he began with gallbladder issues several years ago while in [place]. He had abdominal pain and bloating and went to hospital in [facility]. He was sent to [place] for MRI and recalls concern for pancreatitis and possible
ERCP but did not proceed with leidy. He has been stable since that time and now presents with onset of back then epigastric pain since 06/30. He admit to nausea without vomiting but denies issues with dysphagia, GERD, wt loss, constipation, or
rectal bleeding. hx EGD/colon 2020. No current anticoagulation.
Past Medical History
Past Medical History: CAD, Cancer (malignant melanoma), HTN, Hypercholesterolemia, NIDDM, Renal Failure (CKD) and Other (chronic back pain, anemia, low testosterone levels, diverticulitis, obesity, gallstones, prior pancreatitis, sleep apnea,
retinal detachment, colon polyps)
Past Surgical History: Orthopedic (rotator cuff surgery ) and Other (detached retina surgery)
Social History
Tobacco: Smoker (quit 20's )
Alcohol: Occasional
Drug: Marijuana (in past )
Personal:
Living: With Family
Employment: Retired
Family History
Family History: Other (father with hx GB problems)
Allergies / Home Medications
Allergy/AdvReac Type Severity Reaction Status Date / Time
shrimp Allergy Swelling Verified 06/30/24 22:27
�Medication �Instructions �Recorded
labetalol 200 mg tablet 400 mg PO BID Blood Pressure 12/25/16
spironolactone 25 mg tablet 25 mg PO BID Blood Pressure 12/25/16
tadalafil 5 mg tablet (Cialis) 1 tab PO DAILYPRN PRN ED 12/25/16
omeprazole 20 mg tablet,delayed 20 mg PO DAILYPRN PRN reflux 06/09/17
release
atorvastatin 20 mg tablet 20 mg PO DAILY High Cholesterol 11/29/22
cyanocobalamin (vitamin B-12) 1,000 mcg IM MONTHLY Supplement 11/29/22
1,000 mcg/mL injection solution
folic acid 1 mg tablet 1 mg PO DAILY Supplement 11/29/22
metformin 500 mg tablet 1,000 mg PO DAILY Diabetes 11/29/22
metformin 500 mg tablet 500 mg PO QPM Diabetes 11/29/22
testosterone 75 mg implant pellet 75 mg SC [id number] Hormonal Agent 11/29/22
(Testopel)
empagliflozin 10 mg tablet 10 mg PO DAILY 06/30/24
(Jardiance)
ibuprofen 200 mg tablet (Advil) 400 mg PO Q8HPRN PRN mild pain 06/30/24
insulin glargine 100 unit/mL (3 45 unit SC DAILY 06/30/24
mL) subcutaneous pen (Lantus
Solostar U-100 Insulin)
Review of Systems
-
History Source: Patient
Constitutional: Reports No Symptoms
EENT: Reports No Symptoms
Respiratory: Reports No Symptoms
Cardiac: Reports No Symptoms
Abdomen/GI: Reports Abdominal Pain, Nausea and Diarrhea (occasional )
: Reports No Symptoms
Musculoskeletal: Reports No Symptoms
Skin: Reports No Symptoms
Neurological: Reports No Symptoms
Endocrine: Reports No Symptoms
Hematologic/Lymphatic: Reports No Symptoms
Vital Signs
Temp Pulse Resp BP Pulse Ox
99.2 F 94 18 126/70 98
06/30/24 22:40 06/30/24 22:40 06/30/24 22:40 06/30/24 22:40 06/30/24 22:40
Physical Exam
Exam
General: Well Developed, Well Nourished and No Apparent Distress
HEENT: Normocephalic and Other (minimal jaundice )
Cardiac: Regular Rhythm
GI: Soft, Non Distended and Tender (very minimal )
Musculoskeletal: No Clubbing and No Cyanosis
Skin: Warm and Dry
Neuro: Awake, Alert and AO x 3
Psych: Calm
Results
WBC 14.8 10^3/uL (4.8-10.8) H 07/01/24 05:57
Hgb 10.5 g/dL (13.0-18.0) L 07/01/24 05:57
Hct 30.9 % (39.0-52.0) L 07/01/24 05:57
MCV 90.6 fL (80.0-94.0) 07/01/24 05:57
Plt Count 120 10^3/uL (130-400) L D 07/01/24 05:57
Absolute Neuts (auto) 7.8 10^3/uL (1.4-6.5) H 06/30/24 15:52
Sodium 137 mmol/L (135-145) 06/30/24 15:52
Potassium 4.7 mmol/L (3.5-5.1) 06/30/24 15:52
Chloride 98 mmol/L (98-107) 06/30/24 15:52
Carbon Dioxide 24 mmol/L (22-30) 06/30/24 15:52
BUN 27 mg/dl (9-20) H 06/30/24 15:52
Creatinine 1.6 mg/dL (0.7-1.3) H 06/30/24 15:52
Calcium 9.9 mg/dl (8.4-10.2) 06/30/24 15:52
Total Bilirubin 3.1 mg/dl (0.2-1.3) H 06/30/24 15:52
AST 157 U/L (17-59) H 06/30/24 15:52
ALT 63 U/L (0-50) H 06/30/24 15:52
Alkaline Phosphatase 71 U/L (38-126) 06/30/24 15:52
Lipase 235 U/L (23-300) 06/30/24 15:52
Diagnostic Image Results:
06/30/24 US abdomen
Small gallstones are present. There is a 4 mm gallbladder polyp, for which no further imaging follow-up is recommended.
No evidence for gallbladder wall thickening or pericholecystic edema, and the patient has a negative sonographic Barnes's sign.
The common bile duct is dilated, measuring up to 9 mm. No sonographic evidence for bile duct calculus.
Fatty infiltration of the liver.
Splenic size is in the upper range of normal.
Pancreas is not well-visualized, with no gross abnormality in the peripancreatic region.
07/01 MR Abdomen W/o & W Contrast
1. OBSTRUCTING CHOLEDOCHOLITHIASIS in the distal common bile duct.
2. Mild intrahepatic and extrahepatic biliary dilatation.
3. Severely distended gallbladder containing cholelithiasis.
4. Moderate diffuse hepatic steatosis.
5. Minimal perihepatic ascites.
6. Mild nusrat hepatis and portacaval lymphadenopathy.
7. Many pancreatic cysts (approximately 15) measuring up to 1.1 cm in size.
8. Moderate chronic bilateral renal disease.
9. Small hiatal hernia.
10. Mild cardiomegaly.
Prior GI Procedures:
EGD: 10/2020 dayday
- Normal esophagus. Biopsied.
- Normal stomach.
- Normal examined duodenum.
bx neg EOE
Colonoscopy: 10/2020 [facility]- - Three 4 mm polyps in the sigmoid colon, in the
transverse colon and at the ileocecal valve, removed
with a cold snare. Resected and retrieved.
- Diverticulosis in the sigmoid colon, in the
descending colon and in the ascending colon.
bx TA, colonic mucosal with nodular reactive lymphoid aggregate, colonic mucosa no specific pathologic change
Assessment / Plan
-
Pt is a 73yo with hx gallstones, prior pancreatitis 3 years ago in [place] with ? ERCP, , HTN, hypercholesterolemia, malignant melanoma, CKD, NIDDM, colon polyp, diverticulitis, retinal detachment, sleep apnea with onset of abdominal pain. After
admission noted with WBC 14,800, platelets 120, Na 134, creat 1.7, bili 5, AST 195, ALT 88, alk phos 56, lipase 85. US completed with small gallstones with 4 mm gallbladder polyps, neg barnes sign and no GBWT however CBD was dilated to 9mm without
signs of CBD stone, fatty liver, pancreas not well visualized. MRI with MRCP completed with obstructing choledocholithiasis in distal CBD with mild intra and extrahepatic biliary dilatation, moderate diffuse hepatic steatosis, mild perihepatic
ascites, mild nusrat hepatis/portacaval lymphadenopathy, many pancreatic cyst, b/l renal disease, small HH and CM.
-back/epigastric abdominal pain
-increased LFT's
-choledocholithiasis
-cholelithiasis
-fatty liver
-multiple pancreatic cysts
-hx prior pancreatitis 3 years ago likely gallstone related
-leukocytosis
-mild thrombocytopenia
-hyponatremia
other med problems:
-prior pancreatitis
-HTN
-hypercholesterolemia
-malignant melanoma
-CKD
-NIDDM
-colon polyps
-diverticulitis
-retinal detachment
-sleep apnea
PLAN:
etiology of abdominal pain rise in LFT's likely related to choledocholithiasis noted on MRI
s/p MRI as noted with choledocholithiasis with also noted panc cyst, fatty liver, adenopathy, CM, renal disease, HH
plan for ERCP today
cont NPO
will get surgical evaluation for leidy
hold heparin and add compression stocking
OP follow up for fatty liver and will review with Dr. Dover with multiple pancreatic cyst noted on imaging
reviewed with Dr. Urrutia
-
-
Thank you for consultation and allowing me to participate in the patient's care. Please call the reconnaissance crewmember GI physician during the after hours with any questions or concerns.
[2024-07-01 07:03] LABS: ALT (SGPT) 88 U/L (0-50); AST (SGOT) 195 U/L (17-59); Albumin 3.3 g/dl (3.5-5.0); Alkaline Phosphatase 56 U/L (38-126); Blood Urea Nitrogen 31 mg/dl (9-20); Calcium 8.6 mg/dl (8.4-10.2); Carbon Dioxide 24 mmol/L (22-30); Chloride 102 mmol/L (98-107); Estimated Creatinine Clearance 39 ml/min; Glucose 148 mg/dl (70-99); Lipase 85 U/L (23-300); Potassium 4.6 mmol/L (3.5-5.1); Sodium 134 mmol/L (135-145); Total Protein 5.6 g/dl (6.3-8.2); eGFR 42.04
--- NOTE | 2024-07-01 07:27 | PTCARENOTE ---
pt is aaox3, no c/o pain. pt states he feels dehydrated. pt has hand tremors - states he drinks a scotch daily. Pt is npo for mrcp in am.
[2024-07-01 07:35] LABS: Glucose - Point of Care 131 mg/dl (70-99)
--- NOTE | 2024-07-01 07:41 | W.PN.HOSP.TC ---
Today's Communication/Plan
-
see A/P
Assessment / Plan
Assessment / Plan
73-year-old with past medical history significant for insulin-dependent diabetes, hypertension, hyperlipidemia, reported history of gallstones as well as episode of pancreatitis several years ago secondary to gallstones; p/w 1 day history of
abdominal pain. She took some Pepto-Bismol but had no improvement so came to the emergency department. Denies any alcohol use. Patient reports pain is similar to his episode of pancreatitis. Denies any acute changes in his medications.
Patient reports that by the time of arrival in the emergency department is pain has resolved and is currently abdominal pain-free.
A right upper quadrant ultrasound shows small gallstones, 4 mm gallbladder polyp and dilation of the common bile duct to 9 mm. No gallbladder distention, pericholecystic fluid or sonographic Barnes sign.
A/P:
# Biliary colic and choledocholithiasis.
# Transaminitis with hyperbilirubinemia
No CBD stone visualized on US
MRCP noted OBSTRUCTING CHOLEDOCHOLITHIASIS in the distal common bile duct.
for ERCP per GI
Cont NPO with IVF LR at 75 cc an hour
GI on board
GS CS for eventual lap leidy
# Leucocytosis suspect reactive
afebrile
Monitor WBC
# Essential hypertension
Continue labetalol and spironolactone with hold parameters
# Hyperlipidemia
Continue atorvastatin
# IDDM
CHICKEN TENDER Lantus 45 units daily, with NPO status, cont Lantus 20 units daily
AccuCheck, SSI
hold metformin/Jardiance
# CKD II
Creat 1.7 which appears to be at baseline
# GERD
continue PPI use IV
# RBBB
# Malignant melanoma (2000)
DVT PPX: HSQ
Code status - Full Code
DW GI team
DW at bedside
Anticipated Discharge: > 48 hours
Subjective/Interval History
-
Date of Service: July 01, 2024
Objective Data
-
Labs:
Laboratory Results
07/01/24
05:57
WBC 14.8 H
Hgb 10.5 L
Hct 30.9 L
Plt Count 120 L D
Sodium 134 L
Potassium 4.6
Chloride 102
Carbon Dioxide 24
BUN 31 H
Creatinine 1.7 H
Glucose 148 H
Calcium 8.6
Total Bilirubin 5.0 H D
AST 195 H
ALT 88 H
Alkaline Phosphatase 56
Vital Signs:
Vital Signs
Temp Pulse Resp BP Pulse Ox
37.3 C 94 18 126/70 98
06/30/24 22:40 06/30/24 22:40 06/30/24 22:40 06/30/24 22:40 06/30/24 22:40
I&O
06/30/24 07/01/24 07/02/24
06:59 06:59 06:59
Intake Total 1080 / 1080
Balance 1080 / 1080
Review of Systems
-
All other systems: Reviewed and negative
Abdomen/GI: Denies Abdominal Pain (resolved ), Nausea or Vomiting
Physical Exam
-
General: Well Developed, Well Nourished, No Apparent Distress, Comfortable and Conversant; Negative Respiratory Distress
HEENT: Normocephalic, Atraumatic, Nose Appears Normal and Ears Appear Normal; Negative Oxygen
Respiratory: Clear to Auscultation and Non Labored Respirations; Negative Accessory Resp Muscle Use
Cardiac: Regular Rhythm and S1/S2
GI: Soft, Nontender, Nondistended and Normal Bowel Sounds
Skin: Warm and Dry
Neuro: Awake, Alert, Oriented and AO x 3
Psych: Calm and Intact Judgement/Insight
Data Reviewed
-
MRI: Report Reviewed by me
Labs: Labs Reviewed by me
[2024-07-01 09:22] LABS: Glycohemoglobin (HgbA1c) 6.6 % (4.0-5.6)
[2024-07-01] MEDS: LANTUS SC (10:19)
[2024-07-01] MEDS: ALDACTONE PO (10:19)
[2024-07-01] MEDS: NSS (PRESERVATIVE FREE) 10 ML IV (10:20)
[2024-07-01] MEDS: TRANDATE PO (10:20)
[2024-07-01] MEDS: PROTONIX IV 40 MG IV (10:20)
[2024-07-01] MEDS: LIPITOR 20 MG PO (10:21)
[2024-07-01] MEDS: FOLVITE 1 MG PO (10:21)
[2024-07-01] MEDS: HEPARIN SC (10:23)
--- NOTE | 2024-07-01 11:24 | CM ---
Patient seen bedside.
IA completed.
Patient lives with spouse in 2 story home with 1 step to enter.
Bed and bath 1st floor.
Patient independent prior to admission with out assistive devices.
Patient drives.
No hx VN.
patient for ERCP today.
PCP: Dr Young
Pharmacy: [facility]
Plan: home no needs anticipated.
[2024-07-01 12:53] LABS: Glucose - Point of Care 133 mg/dl (70-99)
[2024-07-01 13:11] LABS: PT 15.5 Sec (11.4-14.6)
[2024-07-01] MEDS: CIPRO 200 MG 100 IV (14:12)
[2024-07-01] MEDS: LR 1000 IV ×2 (14:17→23:04)
[2024-07-01] MEDS: FLAGYL 500 MG 100 IV ×2 (14:18→23:04)
--- NOTE | 2024-07-01 15:10 | CON.GS ---
Medical History
-
Chief Complaint: Abdominal pain
History of Present Illness:
Patient is a 73 yo M with a PMH of obesity, HTN, HLD, CAD, NIDDM, CKD, ELIO, and melanoma s/p excision who presents with acute onset of upper abdominal pain. Symptoms began approximately 48 hours ago. Currently improved, but not completely
resolved. He describes today intense bloating, distention, and discomfort rating around his upper abdomen into his back. No fevers or chills. Associated nausea, no vomiting. Denies any jaundice, pale stools, or tea colored urine. He does report
a similar episode years ago while down in the [facility] requiring transfer to a hospital in [place] where he was managed for gallstone pancreatitis. These current symptoms are similar to that previously. He denies any intermittent epigastric or
RUQ abdominal pain over the intervening years.
Past Medical History
Past Medical History: CAD, Cancer (Melanoma), GERD, HTN, Hypercholesterolemia, NIDDM and Renal Failure
Past Surgical History: Other ( Melanoma excision)
Social History
Tobacco: Former Smoker ( Quit years ago )
Alcohol: Occasional
Drug: None
Personal:
Living: With Family
Employment: Retired
Family History
Family History: Reviewed & Noncontributory
Allergies / Home Medications
Allergy/AdvReac Type Severity Reaction Status Date / Time
shrimp Allergy Swelling Verified 06/30/24 22:27
�Medication �Instructions �Recorded �Confirmed �Type
labetalol 200 mg tablet 400 mg PO BID Blood Pressure 12/25/16 06/30/24 History
spironolactone 25 mg tablet 25 mg PO BID Blood Pressure 12/25/16 06/30/24 History
tadalafil 5 mg tablet (Cialis) 1 tab PO DAILYPRN PRN ED 12/25/16 06/30/24 History
omeprazole 20 mg tablet,delayed 20 mg PO DAILYPRN PRN reflux 06/09/17 06/30/24 History
release
atorvastatin 20 mg tablet 20 mg PO DAILY High Cholesterol 11/29/22 06/30/24 History
cyanocobalamin (vitamin B-12) 1,000 mcg IM MONTHLY Supplement 11/29/22 06/30/24 History
1,000 mcg/mL injection solution
folic acid 1 mg tablet 1 mg PO DAILY Supplement 11/29/22 06/30/24 History
metformin 500 mg tablet 1,000 mg PO DAILY Diabetes 11/29/22 06/30/24 History
metformin 500 mg tablet 500 mg PO QPM Diabetes 11/29/22 06/30/24 History
testosterone 75 mg implant pellet 75 mg SC [id number] Hormonal Agent 11/29/22 06/30/24 History
(Testopel)
empagliflozin 10 mg tablet 10 mg PO DAILY 06/30/24 06/30/24 History
(Jardiance)
ibuprofen 200 mg tablet (Advil) 400 mg PO Q8HPRN PRN mild pain 06/30/24 06/30/24 History
insulin glargine 100 unit/mL (3 45 unit SC DAILY 06/30/24 06/30/24 History
mL) subcutaneous pen (Lantus
Solostar U-100 Insulin)
Review of Systems
-
A 10 point review of systems was completed, and was negative except as per HPI.
Physical Exam
Vital Signs
Temp Pulse Resp BP Pulse Ox
98.8 F 88 18 110/65 94
07/01/24 08:03 07/01/24 10:54 07/01/24 08:03 07/01/24 10:54 07/01/24 08:03
06/30/24 07/01/24 07/02/24
06:59 06:59 06:59
Actual Weight 84.958 kg
Body Mass Index (BMI) 31.2
Lab Results
07/01/24 05:57
07/01/24 05:57
WBC 14.8 10^3/uL (4.8-10.8) H 07/01/24 05:57
Hgb 10.5 g/dL (13.0-18.0) L 07/01/24 05:57
Hct 30.9 % (39.0-52.0) L 07/01/24 05:57
Plt Count 120 10^3/uL (130-400) L D 07/01/24 05:57
Abs Immat Gran (auto) 0.0 10^3/uL (0-0.05) 06/30/24 15:52
Neutrophils % 89.7 % (42.2-75.2) H 06/30/24 15:52
Physical Exam
General: Well Developed, Well Nourished and No Apparent Distress
HEENT: Normocephalic and Scleral Icterus
Respiratory: Non Labored Respirations
Cardiac: Regular Rhythm
GI: Soft, Non Distended, Tender (Mild epigastric, negative Barnes's sign), Obese and Other (Non-peritoneal)
Musculoskeletal: No Edema
Skin: Warm and Dry
Neuro: Nonfocal/Grossly Intact
Data Reviewed
-
Ultrasound: Image Personally Visualized and interpreted and Report Reviewed by me
MRI: Image Personally Visualized and interpreted and Report Reviewed by me
Labs: Labs Reviewed by me
Assessment / Plan
-
Patient is a 73 yo M p/w choledocholithiasis
The natural history and pathophysiology of biliary stone disease was discussed. Anatomy was reviewed. Role of cholecystectomy in preventing future episodes of cholecystitis, choledocholithiasis or GS pancreatitis was discussed. GI consult noted,
plan for ERCP today. Timing of cholecystectomy pending recovery, tentatively tomorrow. All questions answered.
-- NPO for procedure, would make NPO PM if given clears post-ERCP
-- IVF
-- Abx: Cipro, Flagyl
-- Trend labs
-- Timing of cholecystectomy TBD
[2024-07-01 17:21] LABS: Glucose - Point of Care 106 mg/dl (70-99)
[2024-07-01 18:51] LABS: Glucose - Point of Care 107 mg/dl (70-99)
[2024-07-01] MEDS: TYLENOL 650 MG PO (20:30)
[2024-07-01] MEDS: TRANDATE 400 MG PO (20:30)
[2024-07-01] MEDS: ALDACTONE 25 MG PO (20:30)
--- NOTE | 2024-07-01 21:25 | TRANSFER ---
Report received from TAPPER HELPER Kevon - pt arrived vis stretcher at 1940 s/p ERCP. Pt is AAOx3, able to make all needs known, ambulated to bed without incident. Voided on arrival. Maintained on a CLD w/o N/V. VS & assessment as documented. Spouse at the
bedside. Call mendoza within reach, bed in lowest position. Safety maintained.
[2024-07-01 22:11] LABS: Glucose - Point of Care 233 mg/dl (70-99)
[2024-07-02] VITALS (10 sets, daily range): BP systolic 104–142; BP diastolic 48–73
[2024-07-02] MEDS: CIPRO 200 MG 100 IV (01:00)
--- NOTE | 2024-07-02 02:49 | DOWNTIME ---
There was a [employer] Client Infection Preventionist Downtime on 07/02/2024 from 0100 to 07/02/2023 at 0235 . Downtime documentation of patient's care, including medication administrations, has been reconciled in the electronic record per guidelines. Refer to the
patient's paper chart under the miscellaneous tab to see printed paper medication records and downtime forms.
[2024-07-02 06:22] LABS: Glucose - Point of Care 220 mg/dl (70-99)
[2024-07-02] MEDS: NOVOLOG FLEXPEN-LOW RESISTANCE 2 UNITS SC ×2 (06:23→12:45)
[2024-07-02 06:28] LABS: % Basophils 0.2 % (0-2); % Immature Granulocytes 0.9 % (0-0.5); % Lymphocytes 4.4 % (20.5-51.1); % Monocytes 4.5 % (1.7-9.3); Absolute Immature Granulocytes 0.1 10^3/uL (0-0.05); Absolute Lymphocytes 0.4 10^3/uL (1.2-3.4); Absolute Monocytes 0.4 10^3/uL (0.1-0.6); Absolute Neutrophils 8.6 10^3/uL (1.4-6.5); Hematocrit 32.1 % (39.0-52.0); Hemoglobin 10.7 g/dL (13.0-18.0); Mean Corp Hgb Conc. 33.3 g/dL (33.0-37.0); Mean Corpuscular Hgb 30.7 pg (27.0-31.0); Mean Platelet Volume 11.2 fL (7.4-10.4); Nucleated Red Blood Cells % 0 % (-); Platelet Count 115 10^3/uL (130-400); Red Blood Cell Count 3.49 10^6/uL (4.70-6.10); Red Cell Dist. Width 14.6 % (11.5-14.5); White Blood Cell Count 9.6 10^3/uL (4.8-10.8)
[2024-07-02 07:52] LABS: ALT (SGPT) 162 U/L (0-50); AST (SGOT) 286 U/L (17-59); Albumin 3.3 g/dl (3.5-5.0); Alkaline Phosphatase 66 U/L (38-126); Blood Urea Nitrogen 29 mg/dl (9-20); Calcium 8.6 mg/dl (8.4-10.2); Carbon Dioxide 20 mmol/L (22-30); Chloride 102 mmol/L (98-107); Estimated Creatinine Clearance 43 ml/min; Glucose 188 mg/dl (70-99); Magnesium 1.6 mg/dl (1.6-2.3); Sodium 135 mmol/L (135-145); Total Bilirubin 5.5 mg/dl (0.2-1.3); Total Protein 5.7 g/dl (6.3-8.2); eGFR 45.21
[2024-07-02] MEDS: LANTUS SC (08:00)
--- NOTE | 2024-07-02 09:28 | W.PN.GI.CBS2 ---
Addendum entered and electronically signed by Faby Silva Do, MD 07/02/24 11:32:
I saw and examined the patient.
The DIRECTOR RECREATION's note was reviewed and I agree with the note.
Comment: He feels well denies abd pain, nausea/vomiting. Vitals stable, soft NTTP abdomen. Labs slight rise in LFTs compared to 07/01. ERCP 07/01 with balloon extraction and sphincterotomy for choledocholithiasis.
Plan to OR today for CYY with IOC. Case d/w Dr Calvert. Outpatient follow up with Dr Dover arranged. GI will sign off please call for questions. All questions answered for pt and .
Original Note:
Today's Communication / Plan
-
MRI with choledocholithiasis
s/p ERCP with stone removal
LFT's mild increased today cont to trend
for leidy today
NPO
cont compression stocking
OP follow up for fatty liver/panc cysts
Assessment / Plan
-
Pt is a 73yo with hx gallstones, prior pancreatitis 3 years ago in [place] with ? ERCP, , HTN, hypercholesterolemia, malignant melanoma, CKD, NIDDM, colon polyp, diverticulitis, retinal detachment, sleep apnea with onset of abdominal pain. After
admission noted with WBC 14,800, platelets 120, Na 134, creat 1.7, bili 5, AST 195, ALT 88, alk phos 56, lipase 85. US completed with small gallstones with 4 mm gallbladder polyps, neg trimble sign and no GBWT however CBD was dilated to 9mm without
signs of CBD stone, fatty liver, pancreas not well visualized. MRI with MRCP completed with obstructing choledocholithiasis in distal CBD with mild intra and extrahepatic biliary dilatation, moderate diffuse hepatic steatosis, mild perihepatic
ascites, mild nusrat hepatis/portacaval lymphadenopathy, many pancreatic cyst, b/l renal disease, small HH and CM.
07/02/24 ERCP - A filling defect consistent with a stone was seen on the cholangiogram.Choledocholithiasis was found. Complete removal was accomplished by biliary sphincterotomy and balloon
extraction - A biliary sphincterotomy was performed. - The biliary tree was swept - LR administered for PEP prophylaxis.
-back/epigastric abdominal pain
-increased LFT's
-choledocholithiasis s/p ERCP 07/01
-cholelithiasis
-fatty liver
-multiple pancreatic cysts
-hx prior pancreatitis 3 years ago likely gallstone related
-leukocytosis
-mild thrombocytopenia
-hyponatremia
other med problems:
-prior pancreatitis
-HTN
-hypercholesterolemia
-malignant melanoma
-CKD
-NIDDM
-colon polyps
-diverticulitis
-retinal detachment
-sleep apnea
PLAN:
MRI with choledocholithiasis
s/p ERCP with stone removal
LFT's mild increased today cont to trend
for leidy today
NPO
cont compression stocking
OP follow up for fatty liver/panc cysts
Subjective
Subjective
Date of Service: July 02, 2024
NPO no stools feeling well no abdominal pain
Objective
Data Reviewed
Laboratory Data:
Laboratory Results
07/02/24 04:46
07/02/24 04:46
Laboratory Results
PT 15.5 Sec (11.4-14.6) H 07/01/24 12:42
INR 1.20 07/01/24 12:42
Magnesium 1.6 mg/dl (1.6-2.3) 07/02/24 04:46
Total Bilirubin 5.5 mg/dl (0.2-1.3) H 07/02/24 04:46
AST 286 U/L (17-59) H 07/02/24 04:46
ALT 162 U/L (0-50) H 07/02/24 04:46
Alkaline Phosphatase 66 U/L (38-126) 07/02/24 04:46
Lipase 85 U/L (23-300) 07/01/24 05:57
Vital Signs and I&O:
Vital Signs
Temp Pulse Resp BP Pulse Ox
97.9 F 84 16 123/73 96
07/02/24 07:00 07/02/24 07:00 07/02/24 07:00 07/02/24 07:00 07/02/24 07:00
I&O
07/01/24 07/02/24 07/03/24
06:59 06:59 06:59
Intake Total 1080 / 1080 200 / 200
Balance 1080 / 1080 200 / 200
Physical Exam
Physical Exam
HEENT: Other
Cardiology: Normal Sinus Rhythm
Pulmonary: Clear
GI: Soft, Non Distended and Non Tender
Extremities: No Edema
Neuro: Non Focal
[2024-07-02] MEDS: ALDACTONE PO (09:33)
[2024-07-02] MEDS: FLAGYL 500 MG 100 IV (09:33)
[2024-07-02] MEDS: NSS (PRESERVATIVE FREE) 10 ML IV (09:34)
[2024-07-02] MEDS: PROTONIX IV 40 MG IV (09:34)
[2024-07-02] MEDS: FOLVITE 1 MG PO (09:34)
[2024-07-02] MEDS: LIPITOR 20 MG PO (09:36)
[2024-07-02] MEDS: TRANDATE PO (09:36)
--- NOTE | 2024-07-02 10:18 | W.PN.UPDATE ---
Update Note
Progress Note Update
OCTOR today for rCCY with cholangiogram
Risks, benefits, alternativs and complications discussed in detail including but not limited to pain, bleeding, infection, injury to intra-abdominal structures such as bile ducts/bowel/liver, need for further procedures, conversion to open and pt
verbalized understanding and agreed to proceed.
--- NOTE | 2024-07-02 11:19 | W.PN.HOSP.TC ---
Today's Communication/Plan
-
see A/P
Assessment / Plan
Assessment / Plan
73-year-old with past medical history significant for insulin-dependent diabetes, hypertension, hyperlipidemia, reported history of gallstones as well as episode of pancreatitis several years ago secondary to gallstones; p/w 1 day history of
abdominal pain. She took some Pepto-Bismol but had no improvement so came to the emergency department. Denies any alcohol use. Patient reports pain is similar to his episode of pancreatitis. Denies any acute changes in his medications.
Patient reports that by the time of arrival in the emergency department is pain has resolved and is currently abdominal pain-free.
A right upper quadrant ultrasound shows small gallstones, 4 mm gallbladder polyp and dilation of the common bile duct to 9 mm. No gallbladder distention, pericholecystic fluid or sonographic Barnes sign.
A/P:
# Biliary colic and choledocholithiasis.
# Transaminitis with hyperbilirubinemia
No CBD stone visualized on US
MRCP noted OBSTRUCTING CHOLEDOCHOLITHIASIS in the distal common bile duct.
s/p ERCP 07/01 with stone removal
for lap leidy by GS today
trend LFT
covered with Cipro/Flagyl perioperatively
# Leucocytosis suspect reactive, resolved
afebrile
# Essential hypertension
Continue labetalol and spironolactone with hold parameters
# Hyperlipidemia
Continue atorvastatin
# IDDM
PHARMACY GRADUATE INTERN Lantus 45 units daily, with NPO status, cont Lantus 20 units daily
AccuCheck, SSI
hold metformin/Jardiance
# CKD II
Creat 1.6, at baseline
# GERD
continue PPI use IV
# RBBB
# Malignant melanoma (2000)
DVT PPX: HSQ
Code status - Full Code
DW at bedside
Anticipated Discharge: Within 24 hours
Subjective/Interval History
-
Date of Service: July 02, 2024
Objective Data
-
Labs:
Laboratory Results
07/02/24
04:46
WBC 9.6
Hgb 10.7 L
Hct 32.1 L
Plt Count 115 L
Sodium 135
Potassium 5.0
Chloride 102
Carbon Dioxide 20 L
BUN 29 H
Creatinine 1.6 H
Glucose 188 H
Calcium 8.6
Total Bilirubin 5.5 H
AST 286 H
ALT 162 H
Alkaline Phosphatase 66
Vital Signs:
Vital Signs
Temp Pulse Resp BP Pulse Ox
36.6 C 78 16 107/70 96
07/02/24 07:00 07/02/24 09:36 07/02/24 07:00 07/02/24 09:36 07/02/24 07:00
I&O
07/01/24 07/02/24 07/03/24
06:59 06:59 06:59
Intake Total 1080 / 1080 200 / 200
Balance 1080 / 1080 200 / 200
Review of Systems
-
All other systems: Reviewed and negative
Abdomen/GI: Denies Abdominal Pain (resolved ), Nausea or Vomiting
Physical Exam
-
General: Well Developed, Well Nourished, No Apparent Distress, Comfortable and Conversant; Negative Respiratory Distress
HEENT: Normocephalic, Atraumatic, Nose Appears Normal and Ears Appear Normal; Negative Oxygen
Respiratory: Clear to Auscultation and Non Labored Respirations; Negative Accessory Resp Muscle Use
Cardiac: Regular Rhythm and S1/S2
GI: Soft, Nontender, Nondistended and Normal Bowel Sounds
Skin: Warm and Dry
Neuro: Awake, Alert, Oriented and AO x 3
Psych: Calm and Intact Judgement/Insight
Data Reviewed
-
MRI: Report Reviewed by me
Labs: Labs Reviewed by me
--- NOTE | 2024-07-02 12:16 | CM ---
Chart reviewed
Pt for OR today for lap leidy
CM will follow for needs post op
Plan - anticipate home no needs
[2024-07-02 12:23] LABS: Glucose - Point of Care 197 mg/dl (70-99)
--- NOTE | 2024-07-02 15:57 | W.IMMPOSTOP ---
Addendum entered and electronically signed by Sushil Calvert MD 07/02/24 16:07:
DISREGARD NOTE BELOW, ENTERED IN ERROR, INCORRECT PT
Original Note:
Surgical Immed Post Op Note
-
Primary Surgeon: Enrike
Assisting: Natacha PAYNE
Pre-op Diagnosis: Incarcerated right inguinal hernia
Post-op Diagnosis: Same
Procedure Performed: Robot assisted laparoscopic repair of incarcerated right inguinal hernia
Anesthesia Type: GETA
Specimen / Cultures: None
Estimated Blood Loss: 20cc
Complications: None immediate
Operative Findings: Counter incision required for hernia reduction, large incarcerated fat lobule reduced; posterior repair completed with XL MID 3D max
[2024-07-02 16:25] LABS: Glucose - Point of Care 167 mg/dl (70-99)
--- NOTE | 2024-07-02 18:02 | W.IMMPOSTOP ---
Surgical Immed Post Op Note
-
Primary Surgeon: Enrike
Assisting: Natacha ALEX
Pre-op Diagnosis: Choledocholithiasis
Post-op Diagnosis: Chronic calculous cholecystitis
Procedure Performed: Robot assisted laparoscopic cholecystectomy with cholangiogram
Anesthesia Type: GETA
Specimen / Cultures: Gallbladder
Estimated Blood Loss: 20cc
Complications: None immediate
Operative Findings: Tensely distended gallbladder decompressed with cyst aspiration needle, 5mm sales assistants and salespersons port required for retraction of stomach and suction; cholangiogram with good opacification of common bile duct, common hepatic duct, duodenum
and hepatic radicals without obvious filling defects
--- NOTE | 2024-07-02 18:04 | OR.RPT ---
Operative Report
Operative Report
Primary Surgeon: Enrike
Assisting: Natacha ALEX
Pre-op Diagnosis: Choledocholithiasis
Post-op Diagnosis: Chronic calculous cholecystitis, umbilical hernia
Procedure Performed: Robot assisted laparoscopic cholecystectomy with cholangiogram and primary repair umbilical hernia
Anesthesia Type: GETA
Specimen / Cultures: Gallbladder
Estimated Blood Loss: 20cc
Complications: None immediate
Operative Findings: Tensely distended gallbladder decompressed with cyst aspiration needle, 5mm itinerant teacher assistant port required for retraction of stomach and suction; cholangiogram with good opacification of common bile duct, common hepatic duct, duodenum
and hepatic radicals without obvious filling defects
Date of Surgery:� 07/02/24
Indications: This 73M developed choledocholithiasis. He underwent successful ERCP with stone extraction. Laparoscopic cholecystectomy with cholangiogram and robotic assist was planned.
Description of procedure: The patient was placed on the operating table in the supine position. General anesthesia was induced. A time-out was completed verifying correct patient, procedure, site, positioning, and special equipment prior to
beginning this procedure. An orogastric tube was placed. The abdomen was prepped and draped in the usual sterile fashion. A stab incision was made in left upper quadrant and the Veress needle was inserted. Proper position was confirmed by aspiration
and saline meniscus test. The abdomen was insufflated with carbon dioxide to a pressure of 12mmHg. The patient tolerated insufflation well.
A 8mm trocar was then inserted above the umbilicus through the existing hernia defect. The laparoscope was inserted and the abdomen inspected. No injuries from initial trocar placement or Veress needle insertion were noted. Additional 8mm trocars
were then inserted in the following locations: two in the right lower quadrant and to the left of the umbilicus and just above. The abdomen was inspected and no abnormalities were found. The table was placed in the reverse Trendelenburg position
with the right side up. The gallbladder was tensely distended and was decompressed with a cyst aspiration needle. The dome of the gallbladder was grasped with an atraumatic grasper and retracted over the dome of the liver. The infundibulum was then
grasped with an atraumatic grasper and retracted toward the right lower quadrant. The stomach obscured the view and a 5mm itinerant teacher assistant port was placed to allow for an atraumatic grasper to retract it. This maneuver exposed Calot�s triangle. The
peritoneum overlying the gallbladder infundibulum was then incised and the cystic duct and cystic artery identified and circumferentially dissected so that a clear view of the liver was achieved through a window between the cystic duct an cystic
artery. The gallbladder wall was thickened and mildly fibrotic. At this time, the only two structures going into the gallbladder were the cystic artery and cystic duct. The common duct was identified with ICG and protected.
A ez was made in the cystic duct and a cholangiogram catheter was threaded through the abdominal wall and into the cystic duct and secured with a silk tie. Cholangiogram was obtained that showed good opacification of bile ducts and duodenum
without filling defects. The catheter was withdrawn.
The cystic duct was then doubly clipped and divided. The cystic artery was controlled with bipolar and divided. The gallbladder was then dissected from its peritoneal attachments by electrocautery. The posterior plane was fibrotic. The gallbladder
and silk tie were removed using an endoscopic retrieval bag placed through the umbilical port. The gallbladder was passed off the table as a specimen. The gallbladder fossa was irrigated thoroughly with warm sterile saline. There was no evidence of
bleeding from the gallbladder fossa or cystic artery or leakage of the bile from the cystic duct stump. The umbilical trocar site was closed at the fascial level with 2-0 PDS thus closing the hernia. Secondary trocars were removed under direct
vision and noted to be hemostatic. The abdomen was allowed to collapse. The skin was closed with subcuticular sutures of 4-0 monocryl and topical skin adhesive. The orogastric tube was removed.
The patient tolerated the procedure well and was taken to the postanesthesia care unit in stable condition.
[2024-07-02 18:35] LABS: Glucose - Point of Care 175 mg/dl (70-99)
[2024-07-02] MEDS: CIPRO 200 MG IV (18:48)
[2024-07-02] MEDS: FLAGYL 500 MG IV (18:49)
[2024-07-02] MEDS: DILAUDID 0.5 MG IV (19:12)
[2024-07-02] MEDS: NOVOLOG FLEXPEN-LOW RESISTANCE SC (19:49)
[2024-07-02] MEDS: LR 1000 IV (19:52)
[2024-07-02] MEDS: ALDACTONE 25 MG PO (21:31)
[2024-07-02] MEDS: TRANDATE 400 MG PO (21:31)
[2024-07-02] MEDS: TYLENOL 650 MG PO (21:37)
[2024-07-02 21:58] LABS: Glucose - Point of Care 159 mg/dl (70-99)
[2024-07-03] MEDS: FLAGYL 500 MG 100 IV ×2 (00:39→08:01)
[2024-07-03] MEDS: CIPRO 200 MG 100 IV (02:05)
[2024-07-03 03:15] VITALS: BP 103/63
[2024-07-03] MEDS: TYLENOL 650 MG PO (04:40)
[2024-07-03] MEDS: LR IV (06:17)
[2024-07-03 06:44] LABS: Hematocrit 28.6 % (39.0-52.0); Hemoglobin 9.6 g/dL (13.0-18.0); Mean Corp Hgb Conc. 33.6 g/dL (33.0-37.0); Mean Corpuscular Volume 92.3 fL (80.0-94.0); Mean Platelet Volume 11.3 fL (7.4-10.4); Platelet Count 114 10^3/uL (130-400)
[2024-07-03 07:00] VITALS: BP 118/63
[2024-07-03 07:08] LABS: Glucose - Point of Care 143 mg/dl (70-99)
[2024-07-03 07:18] LABS: ALT (SGPT) 223 U/L (0-50); AST (SGOT) 430 U/L (17-59); Alkaline Phosphatase 88 U/L (38-126); Blood Urea Nitrogen 33 mg/dl (9-20); Calcium 8.1 mg/dl (8.4-10.2); Carbon Dioxide 21 mmol/L (22-30); Chloride 102 mmol/L (98-107); Estimated Creatinine Clearance 43 ml/min; Glucose 134 mg/dl (70-99); Magnesium 1.5 mg/dl (1.6-2.3); Potassium 3.9 mmol/L (3.5-5.1); Sodium 135 mmol/L (135-145); Total Protein 5.2 g/dl (6.3-8.2); eGFR 45.21
[2024-07-03] MEDS: FOLVITE 1 MG PO (08:10)
[2024-07-03] MEDS: NSS (PRESERVATIVE FREE) 10 ML IV (08:11)
[2024-07-03] MEDS: LIPITOR 20 MG PO (08:11)
[2024-07-03] MEDS: PROTONIX IV 40 MG IV (08:11)
[2024-07-03] MEDS: LANTUS 0.2 UNITS SC (08:14)
[2024-07-03] MEDS: TRANDATE 400 MG PO (08:15)
[2024-07-03] MEDS: ALDACTONE 25 MG PO (08:18)
--- NOTE | 2024-07-03 10:01 | W.PN.SURGUPD ---
Surgical Update
Surgical Update
Patient seen and examined in evaluation earlier this a.m.
Reports doing well with initial postoperative recovery. Pain controlled. No nausea. Ordered breakfast.
AFVSS
NAD AAOx3
ABD: Soft, protuberant but not distended. Mild tenderness on palpation at incision sites. Incision sites with surgical glue dressings. No ecchymosis, no hematomas, no drainage.
A/P: 73-year-old male POD #1 status post RAL cholecystectomy with cholangiogram
Doing well postop, stable for discharge from surgical standpoint
Outpatient surgical follow-up with Dr. Calvert in 2 to 3 weeks
--- NOTE | 2024-07-03 11:01 | W.PN.HOSP.TC ---
Addendum entered and electronically signed by Tri Urrutia MD 07/03/24 13:21:
total DC time 38 min
Original Note:
Today's Communication/Plan
-
DC home today
Assessment / Plan
Assessment / Plan
73-year-old with past medical history significant for insulin-dependent diabetes, hypertension, hyperlipidemia, reported history of gallstones as well as episode of pancreatitis several years ago secondary to gallstones; p/w 1 day history of
abdominal pain. She took some Pepto-Bismol but had no improvement so came to the emergency department. Denies any alcohol use. Patient reports pain is similar to his episode of pancreatitis. Denies any acute changes in his medications.
Patient reports that by the time of arrival in the emergency department is pain has resolved and is currently abdominal pain-free.
A right upper quadrant ultrasound shows small gallstones, 4 mm gallbladder polyp and dilation of the common bile duct to 9 mm. No gallbladder distention, pericholecystic fluid or sonographic Barnes sign.
A/P:
# Biliary colic and choledocholithiasis.
# Transaminitis with hyperbilirubinemia
No CBD stone visualized on US
MRCP noted OBSTRUCTING CHOLEDOCHOLITHIASIS in the distal common bile duct.
s/p ERCP 07/01 with stone removal
s/p lap leidy by GS 07/02
cont to trend LFT outpt with PCP
covered with Cipro/Flagyl perioperatively, no need for further Abx after DC
# Leucocytosis suspect reactive, resolved
afebrile
# Essential hypertension
Continue labetalol and spironolactone with hold parameters
# Hyperlipidemia
Continue atorvastatin
# IDDM
resume BUNCH MAKER Lantus 45 units daily after DC
resume BUNCH MAKER metformin/Jardiance after DC
# CKD II
Creat 1.6, at baseline
# GERD
continue PPI use IV
# RBBB
# Malignant melanoma (2000)
DVT PPX: HSQ
Code status - Full Code
Anticipated Discharge: Today
Subjective/Interval History
-
Date of Service: July 03, 2024
Objective Data
-
Labs:
Laboratory Results
07/03/24
04:34
WBC 9.0
Hgb 9.6 L
Hct 28.6 L
Plt Count 114 L
Sodium 135
Potassium 3.9
Chloride 102
Carbon Dioxide 21 L
BUN 33 H
Creatinine 1.6 H
Glucose 134 H
Calcium 8.1 L
Total Bilirubin 5.0 H
AST 430 H
ALT 223 H
Alkaline Phosphatase 88
Vital Signs:
Vital Signs
Temp Pulse Resp BP Pulse Ox
37.2 C 81 16 118/63 95
07/03/24 07:00 07/03/24 07:00 07/03/24 07:00 07/03/24 08:18 07/03/24 07:00
I&O
07/02/24 07/03/24 07/04/24
06:59 06:59 06:59
Intake Total 200 / 200 175 / 175 2029
Balance 200 / 200 175 / 175 2029
Review of Systems
-
All other systems: Reviewed and negative
Abdomen/GI: Denies Abdominal Pain (resolved ), Nausea or Vomiting
Physical Exam
-
General: Well Developed, Well Nourished, No Apparent Distress, Comfortable and Conversant; Negative Respiratory Distress
HEENT: Normocephalic, Atraumatic, Nose Appears Normal and Ears Appear Normal; Negative Oxygen
Respiratory: Clear to Auscultation and Non Labored Respirations; Negative Accessory Resp Muscle Use
Cardiac: Regular Rhythm and S1/S2
GI: Soft, Nontender, Nondistended and Normal Bowel Sounds
Skin: Warm and Dry
Neuro: Awake, Alert, Oriented and AO x 3
Psych: Calm and Intact Judgement/Insight
Data Reviewed
-
MRI: Report Reviewed by me
Labs: Labs Reviewed by me
[2024-07-03 11:20] VITALS: BP 115/63
--- NOTE | 2024-07-03 12:02 | CM ---
Pt for discharge today
Has ride home
Given IMM
Plan - home no needs
--- NOTE | 2024-07-03 12:22 | W.DCSUMMARY ---
Discharge Summary
Discharge Data
Date of Admission: 06/30/24
Date of Discharge: 07/03/24
-
Pending Results: No
Hospital Course
Principal Diagnosis:
Biliary colic with choledocholithiasis.
Transaminitis with hyperbilirubinemia due to gallstone
Chronic Diagnoses:�
History of gallstone pancreatitis
Essential hypertension on labetalol and spironolactone
Hyperlipidemia on atorvastatin
Insulin-dependent diabetes
Chronic kidney disease stage II
Gastroesophageal reflux disease
Malignant melanoma (2000)
Consultations:�
Gastroenterology
General Surgery
Procedures:�
ERCP 07/01 followed by lap cholecystectomy 07/02
Clinical course:�
This is a 73-year-old male with past medical history as stated above, who presented with epigastric abdominal pain.
Problem 1:
Biliary colic with choledocholithiasis.
This was associated with transaminitis with hyperbilirubinemia.
His MRCP noted obstructing choledocholithiasis in the distal common bile duct.
He underwent ERCP on 07/01 with successful stone removal.
This was followed by laparoscopic cholecystectomy performed by general surgery on 07/02.
He was able to tolerate diet without any problem the following day, hence was cleared for discharge home.
He can follow-up outpatient LFT with result to his PCP in 1 week.
As for the rest of his medical problems, they were stable during his hospital stay.
Discharge Plan
-
Patient Disposition: Home (Routine Discharge)
Discharge Diagnosis/Procedures: Gallstones with choledocholithiasis, status post ERCP and laparoscopic cholecystectomy
Condition: Good
Diet: As tolerated, Low Fat, Low Cholesterol and Diabetic, Carb Controlled
Activity: As tolerated
Driving Restrictions: Not until seen by your Dr
Blood Work: LFT in 1 week with your PCP
Wound Care: Allow skin glue to flake off on its own
Instructions: Cholecystectomy - Discharge instructions
Referrals:
Kyaw Dover MD [Active] - (follow up with Dr. Dover or SANDRA for noted pancreatic cysts and fatty liver on imaging. Can do telehealth if needed)
Sushil Calvert MD [Active] - in two to four weeks
Geoffrey Young MD [Family Provider] - in less than 1 week
Additional Discharge Medication Instructions: Use extra strength tylenol max 4x daily for pain. Use ice packs and/or heating pads if you find that helpful. If this is not enough, take oxycodone 1-2 tabs.
Discuss metformin with your PCP in setting of your chronic kidney disease.
Hold Lipitor for now until LFT result is out.
Prescriptions:
New
oxycodone 5 mg tablet
5 - 10 mg PO Q4HPRN PRN (Reason: moderate to severe pain) Qty: 16 0RF
Continued
labetalol 200 MG tablet
400 mg PO BID
spironolactone 25 MG tablet
25 mg PO BID
tadalafil [Cialis] 5 MG tablet
1 tab PO DAILYPRN PRN (Reason: ED)
omeprazole 20 mg Tablet,Delayed Release (Dr/Ec)
20 mg PO DAILYPRN PRN (Reason: reflux)
Testopel 75 mg Pellet
75 mg SC [id number]
cyanocobalamin (vitamin B-12) 1,000 mcg/mL solution
1,000 mcg IM MONTHLY
folic acid 1 mg tablet
1 mg PO DAILY
ibuprofen [Advil] 200 mg Tablet
400 mg PO Q8HPRN PRN (Reason: mild pain)
insulin glargine [Lantus Solostar U-100 Insulin] 100 unit/mL (3 mL) Insulin Pen
45 unit SC DAILY
Rx Instructions:
takes in am
Jardiance 10 mg Tablet
10 mg PO DAILY
Held
metformin 500 mg Tablet
1,000 mg PO DAILY
Hold Instructions: Resume on 07/09/24. discuss metformin with your PCP in setting of CKD
metformin 500 mg tablet
500 mg PO QPM
Hold Instructions: Resume on 07/09/24. discuss metformin with your PCP in setting of CKD
atorvastatin 20 mg Tablet
20 mg PO DAILY
Hold Instructions: Resume on 07/09/24. hold until outpatient LFT result is out or further directed by your PCP
Discharge Orders:
Discharge Patient (As Directed); Ordered 07/03/24
Ordered By: Tri Urrutia
Discharge Date and Time
Discharge Date/Time: 07/03/24 12:47
Print Language: SERBIAN
== END 2024-07-03 12:47 | disposition home or self-care (01) | DRG 418 ==
LOC: 2 SOUTH 21:56
PROVIDERS: Internal Medicine Gastroenterology; Nurse Practitioner Adult Health; Nurse Practitioner Family; ADMITTING PHYSICIAN Internal Medicine; ATTENDING PHYSICIAN Internal Medicine; CONSULT PHYSICIAN Internal Medicine Gastroenterology; CONSULT PHYSICIAN Surgery; EMERGENCY PHYSICIAN Emergency Medicine; FAMILY PHYSICIAN Internal Medicine
PROC: 0FC98ZZ Extirpation of Matter from Common Bile Duct, Via Natural or Artificial Opening Endoscopic (ICD-10-PCS; 2024-07-01)
PROC: 0WQF0ZZ Repair Abdominal Wall, Open Approach (ICD-10-PCS; 2024-07-02)
PROC: 0FT44ZZ Resection of Gallbladder, Percutaneous Endoscopic Approach (ICD-10-PCS; 2024-07-02)
PROC: BF101ZZ Fluoroscopy of Bile Ducts using Low Osmolar Contrast (ICD-10-PCS; 2024-07-02)
DX: K80.65 Calculus of gallbladder and bile duct with chronic cholecystitis with obstruction (principal); E87.1 Hypo-osmolality and hyponatremia; I25.10 Atherosclerotic heart disease of native coronary artery without angina pectoris; I12.9 Hypertensive chronic kidney disease with stage 1 through stage 4 chronic kidney disease, or unspecified chronic kidney disease; N18.2 Chronic kidney disease, stage 2 (mild); E11.22 Type 2 diabetes mellitus with diabetic chronic kidney disease; E78.00 Pure hypercholesterolemia, unspecified; D63.1 Anemia in chronic kidney disease; I45.10 Unspecified right bundle-branch block; G47.33 Obstructive sleep apnea (adult) (pediatric); E66.9 Obesity, unspecified; D69.6 Thrombocytopenia, unspecified; K21.9 Gastro-esophageal reflux disease without esophagitis; K42.9 Umbilical hernia without obstruction or gangrene; K76.0 Fatty (change of) liver, not elsewhere classified; Z85.820 Personal history of malignant melanoma of skin; Z87.891 Personal history of nicotine dependence; Z79.84 Long term (current) use of oral hypoglycemic drugs; Z79.4 Long term (current) use of insulin; Z79.899 Other long term (current) drug therapy; Z68.31 Body mass index [BMI] 31.0-31.9, adult
CPT/HCPCS: 88304; 74183; 74300; 74330; 76000; 76700; 80053; 82248; 82962; 83036; 83690; 83735; 85025; 85027; 85610; 93005; 96361; 96374; 96375; 99285; A9575; C1769

== ENCOUNTER 2025-02-20 23:56 | Observation (INO) | payer MEDICARE, OTHER, SELFPAY ==
[2025-02-20 16:02] VITALS: BP 102/63
[2025-02-20 16:29] LABS: Hematocrit 35.8 % (39.0-52.0); Hemoglobin 12.0 g/dL (13.0-18.0); Mean Corp Hgb Conc. 33.5 g/dL (33.0-37.0); Mean Corpuscular Volume 94.0 fL (80.0-94.0); Nucleated Red Blood Cells % 0 % (-); Platelet Count 140 10^3/uL (130-400); Red Cell Dist. Width 12.6 % (11.5-14.5)
[2025-02-20 16:38] LABS: ALT (SGPT) 34 U/L (0-50); AST (SGOT) 51 U/L (17-59); Albumin 4.2 g/dl (3.5-5.0); Alkaline Phosphatase 46 U/L (38-126); Blood Urea Nitrogen 14 mg/dl (9-20); Calcium 8.8 mg/dl (8.4-10.2); Carbon Dioxide 19 mmol/L (22-30); Chloride 96 mmol/L (98-107); Glucose 178 mg/dl (70-99); Potassium 4.3 mmol/L (3.5-5.1); Sodium 132 mmol/L (135-145); Total Protein 6.7 g/dl (6.3-8.2); eGFR 48.55
--- NOTE | 2025-02-20 20:24 | ED.GENMED ---
History of Present Illness
General
Chief Complaint: Abdominal Symptoms
Time Seen by Provider: 02/20/25 19:56
History of Present Illness
History of Present Illness:
74-year-old male with history of hypertension, hyperlipidemia, chronic kidney disease, insulin-dependent diabetes presents to the emergency department for evaluation of generalized weakness, early satiety/poor appetite, and lightheadedness that has
been ongoing for the past 3 to 4 days. He denies any vomiting but does have nausea when he attempts to eat and inability to tolerate more than a few bites. He had a fall while try to get off the toilet today and could not get himself back upright.
Reports mild abdominal discomfort but denies any overt pain, no diarrhea
Past History
Past History
ED Past Medical History: HTN, Hypercholesterolemia and NIDDM
ED Past Surgical History: None
Social History
Tobacco: Non-smoker
Alcohol: Occasional
Personal:
Living: with family
Review of Systems
Review of Systems
Allergies reviewed?: Yes
All Other Systems: ROS reviewed and negative except as documented in HPI and ROS
Phy Exam
Physical Exam
Physical Exam:
GEN: Well appearing, NAD, WDWN
HEENT: Oral mucosa moist, no scleral icterus
Cardiac: Regular rate and rhythm, no murmurs
Lung: No respiratory distress, no tachypnea
Abdomen: Soft, grossly nontender
MSK: No gross deformity or injuries
Skin: Good color, no pallor or jaundice, no rashes
Neuro: AO x3, moves all extremities freely
Psych: Calm, cooperative
Course
Orders/Labs/Results
Orders:
Orders
02/20/25 16:01
EKG [Electrocardiogram (*1)] Urgent
Reason for Study: Vertigo / Dizzy
EKG- Treatment ONCE
02/20/25 16:16
CBC/With Diff [Complete Blood Count/With Diff] Urgent
CMP [Comprehensive Metabolic Panel] Urgent
02/20/25 20:23
CT Abd/Pel (IV only)-DH only Urgent
Comment:
Reason For Exam: poor appetite, early satiety
0.9% Sodium Chloride 1000 ml [Nss] 1,000 ml IV BOLUS
02/20/25 22:38
Urinalysis Reflex To Culture Urgent
Date Specimen was Collected: 02/20/25
Time Specimen was Collected: 22:36
Urine Microscopic Reflex Cult Urgent
Urine Culture Urgent
ABEL Source: U
Specimen Description:
Date Specimen was Collected: 02/20/25
Time Specimen was Collected: 22:36
02/20/25 22:39
Piperacillin/Tazo 3.375 Gram [Zosyn] 3.375 gram in 50 ml IV NOW
02/20/25 23:27
Admit/Transfer Patient As Directed
Co-Sign Provider:
Level of Care: Observation services
Assign to:: Telemetry
Physician / Group: Tory
Diagnosis: colitis
Reason for Telemetry: Syncope
Date to Stop Telemetry: 02/22/25
Time to Stop Telemetry: 11:00
PRN Pain Medication Management As Directed
May give lesser potent ordered pain med per pt: Yes
preference::
Protocol:: Medication orders for pain may be administered in a
manner that supports deferring to patient preference
when the pt is:
- Requesting an ordered lesser potent pain medication.
Least to most potent pain medications are defined
as: acetaminophen < NSAID < tramadol < opioids
(morphine, oxycodone, hydromorphone).
- Requesting a lesser dose of the same medication IF
ORDERED.
- Requesting a less intrusive route of administration
if both routes are prescribed by the provider (PO <
IV).
02/20/25 23:29
Code Status As Directed
Resuscitation Status: Full Code
02/20/25 23:33
Acetaminophen [Tylenol] 650 mg PO Q4HPRN PRN
02/21/25 00:28
0.9% Sodium Chloride 1000 ml [Nss] 1,000 ml IV 125 mls/hr
Bisacodyl [Dulcolax] 10 mg RECTAL F35HPMR PRN
Docusate W/Senna [Senokot-S] 1 tablet PO BIDPRN PRN
Heparin 5,000 units SC Q8
Ondansetron Injectable [Zofran] 4 mg IV Q6HPRN PRN
Polyethylene Glycol Powder [Miralax] 17 grams PO DAILYPRN PRN
02/21/25 00:28
Activity As Directed
Activity Level: With Assistance
Orthostatic Vital Signs As Directed
Orthostatic VS Frequency: Daily
Vital Signs As Directed
Frequency: Per unit guidelines
DX Deep Vein Thrombosis Video Routine
02/21/25 04:30
CefTRIAXone [Rocephin] 1,000 mg IV Q24H
02/21/25 Breakfast
1800 calorie (15 carb) Diabetic
At Your Request: Full Participation
Does patient need a safe tray?: No
Basic Metabolic Panel IN AM
CRP [C-Reactive Protein] IN AM
Complete Blood Count/No Diff IN AM
Magnesium IN AM
TSH IN AM
MetroNIDAZOLE 500 MG/100 ML [Flagyl 500 mg] 100 ml IV Q8H
02/21/25 08:00
Atorvastatin [Lipitor] 20 mg PO DAILY
Dapagliflozin [Farxiga] 10 mg PO DAILY
FOLic ACID [Folvite] 1 mg PO DAILY
Labetalol [Trandate] 400 mg PO BID
Pantoprazole [Protonix IV] 40 mg IV DAILY
Spironolactone [Aldactone] 25 mg PO BID
02/22/25 11:00
DC Protocol for Telemetry ONCE
Abnormal Lab Results
02/20/25 02/20/25
16:16 22:38
RBC 3.81 L 10^6/uL
(4.70-6.10)
Hgb 12.0 L g/dL
(13.0-18.0)
Hct 35.8 L %
(39.0-52.0)
MCH 31.5 H pg
(27.0-31.0)
Abs Immat Gran (auto) 0.1 H 10^3/uL
(0-0.05)
Absolute Lymphs (auto) 1.0 L 10^3/uL
(1.2-3.4)
Absolute Monos (auto) 0.8 H 10^3/uL
(0.1-0.6)
Immature Gran % 0.7 H %
(0-0.5)
Lymphocytes % 12.4 L %
(20.5-51.1)
Monocytes % 10.2 H %
(1.7-9.3)
Sodium 132 L mmol/L
(135-145)
Chloride 96 L mmol/L
(98-107)
Carbon Dioxide 19 L mmol/L
(22-30)
Creatinine 1.5 H mg/dL
(0.7-1.3)
Glucose 178 H mg/dl
(70-99)
Urine Ketones 3+ A
(Negative)
Leukocyte Esterase Rfl 1+ A
(Negative)
Urine WBC (Reflex) 26-30 A /HPF
(0-5)
Urine Bacteria (Reflex) Moderate A
(Negative)
Urine Glucose 4+ A
(Negative)
Urine Albumin (Reflex) 1+ A
(Neg - Trace)
02/20/25 16:16
02/20/25 16:16
Vital Signs
Initial and Last Documented VS:
Initial Vital Signs
Temp Pulse Resp BP Pulse Ox
97.9 F 90 15 102/63 98
02/20/25 16:02 02/20/25 16:02 02/20/25 16:02 02/20/25 16:02 02/20/25 16:02
Last Documented Vital Signs
Temp Pulse Resp BP Pulse Ox
98.1 F 102 12 118/64 97
02/21/25 00:44 02/21/25 00:44 02/21/25 00:44 02/21/25 00:44 02/21/25 00:44
MDM/Problems Addressed
MDM/Problems Addressed:
Patient's imaging does suggest colitis however he has no diarrhea and only minimal abdominal pain. This may be an incidental finding however adjacent inflammatory process to the stomach may be causing his early satiety. Certainly would consider
colonic neoplasm as well. Given that he is profoundly weak and having difficulty ambulating due to poor p.o. intake I will recommend admission to the medical service for further management
*Pulse Oximetry
SaO2: 98
Oxygen Mode of Delivery: Room air
Patient hypoxic: no
*Critical Care Note
Total Time (30-74mins, 75-104mins- exclusive of procedures): Not Applicable
ED Attending Note
-
Portions of this chart may have been created with voice recognition software.� Occasional wrong word or��sound alike� substitutions may have occurred due to the inherent limitations of voice recognition software.
Discharge Plan
Departure
Patient Disposition: Admit
Date of Disposition: 02/20/25
Time of Disposition: 22:39
Presentation/result/management discussed w/ accepting MD/DO: Hospitalist
Discharge Problem:
Colitis, Early satiety
Interventions
Interventions:
*Risk Screen - Suicide Last Done: 02/21/25 00:31
*General Assessment Last Done: 02/20/25 16:02
*Neglect/Abuse Screening Last Done: 02/20/25 16:02
*ED- Fall Risk Assessment Last Done: 02/20/25 23:52
*ED COVID-19 Vaccine History Last Done: 02/20/25 16:02
*ED Influenza Vaccine History Last Done: 02/20/25 16:02
*Nursing Disposition Last Done: 02/21/25 00:20
CK-Oraaoq-Eixrfxyitn Assessment Last Done: 02/20/25 20:41
Discharge Date and Time
Discharge Date/Time: 02/21/25 00:20
--- NOTE | 2025-02-20 20:27 | EDRN ---
1.5 weeks ago pt developed decreased appetite, dizziness and lightheadedness. Pt felt if he ate, food would not stay down. As week went by, pt's symptoms continued. Pt unable to go to his meeting on Sunday because symptoms were bad. Today, pt
fell when he tried to get up off the toilet. Pt landed on edge of bathtub and had no ability to get himself up 'my strength was minimal.' Pt eventually got himself up and decided to come to the ED for evaluation. Pt has only been able to eat
pudding or jello this past week however yesterday he was able to eat half a ham sandwich. No n/v/c/d, cp/sob, abd pain, fever/chills, urinary symptoms.
[2025-02-20] MEDS: NSS 1000 IV (20:30)
[2025-02-20 20:32] VITALS: BMI 26.1
[2025-02-20 20:34] VITALS: BP 123/73
[2025-02-20 21:25] VITALS: BP 124/67
[2025-02-20 22:00] VITALS: BP 111/65
[2025-02-20] MEDS: ZOSYN 50 IV (22:49)
[2025-02-20 22:53] LABS: Urine Character Clear (Clear)
--- NOTE | 2025-02-20 22:56 | HPS.HSE ---
Addendum entered and electronically signed by Nelida Spears MD 02/26/25 03:48:
Correction to first line of H&P. Patient is a 74 y.o male.
Original Note:
Family Physician
-
Family Physician: Geoffrey Young
Chief Complaint
-
Weakness
History of Present Illness
This is an 4-year-old male with past medical history significant for insulin-dependent diabetes, CKD stage IV, hypertension, cholelithiasis status post cholecystectomy presenting to the emergency department with complaints of dizziness, decreased
appetite, fatigue and weakness with almost falling today while using the toilet.
Patient reports symptoms began about 1 week ago with early satiety and poor appetite. Denies any vomiting, regurgitation abdominal distention or constipation. He says although has been having some lightheadedness prior to the episode it got worse
over the last 1 week. Reports lightheadedness is worse with standing or walking. It improves with laying down. He denies any spinning sensation. He denies any association with nausea. Reports mild abdominal discomfort without overt pain. He
denies any diarrhea. He has not had any melena. Denies any hematochezia. He was so weak today and he almost fell and had difficulty getting himself back upright after using the toilet. He denies any chills, fevers. He denies any cough or
shortness of breath. He denies any hypoglycemic episodes.
He did report spouse had a similar episode of early satiety without overt diarrhea nausea or vomiting. She also has some weakness. However symptoms appear to start improving yesterday and she seems back to normal today.
Patient reports prior history of pancreatitis which was likely gallstone proctitis over a year ago, history of choledocholithiasis ultimately cholelithiasis status post cholecystitis. He has not had pancreatitis since. Reports occasional alcohol
use and no history of alcoholic pancreatitis.
On arrival in the emergency department he was afebrile, blood pressure was 111/65 reported of 79 and he was satting 97% on room air. ECG within normal sinus rhythm rate of 86 with right bundle branch block unchanged from prior.
CBC was unremarkable. Electrolytes showed a sodium of 132 and a bicarb of 19. His BUN and creatinine were at baseline at 14 and 1.5. Glucose was 178. LFTs were normal. Lipase pending. UA still pending.
CT a/p: Bowel loops are normal caliber. The terminal ileum and appendix are within normal limits. There is moderate diverticulosis. Despite the lack oral contrast, there is the appearance of moderate wall thickening of the entire descending colon
and proximal sigmoid colon suggesting colitis.
Medical History
Past Medical History
Past Medical History: Reports Other
Additional Past Medical History:
essential hypertension
hyperlipidemia
DM II
chronic anemia
CKD II
RBBB
malignant melanoma (2000)
Past Surgical History: Reports Other
Additional Past Surgical History:
Bilateral rotator cuff repair
Colonoscopy 2020
EGD x2 2016
right detached retina repair 06/2021, 08/2021
bilateral cataract extraction
Social History
Tobacco: Former Smoker
Alcohol: Daily (scotch/couple per day)
Drug: None
Personal:
Living: With Family
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
Family History
Family History: Other (Mom: DM; Dad: DM; Brother: polycystic kidney disease, CAD; Brother: [place])
Allergies / Home Medications
Allergies reflects when Allergies were last updated in [email or web address].
Home Medications with original date entered in [email or web address]
Allergy/Medication List:
Allergies
Allergy/AdvReac Type Severity Reaction Status Date / Time
shrimp Allergy Swelling Verified 02/20/25 20:34
Home Medications
labetalol 200 mg tablet 400 mg PO BID Blood Pressure 12/25/16
spironolactone 25 mg tablet 25 mg PO BID Blood Pressure 12/25/16
tadalafil 5 mg tablet (Cialis) 5 mg PO DAILYPRN PRN ED 12/25/16
omeprazole 20 mg tablet,delayed release 20 mg PO DAILYPRN PRN reflux 06/09/17
atorvastatin 20 mg tablet 20 mg PO DAILY High Cholesterol 11/29/22
Held on 07/03/24. Instructions: Resume on 07/09/24. hold until outpatient LFT result is out or further directed by your PCP
cyanocobalamin (vitamin B-12) 1,000 mcg/mL injection solution 1,000 mcg IM MONTHLY Supplement 11/29/22
folic acid 1 mg tablet 1 mg PO DAILY Supplement 11/29/22
testosterone 75 mg implant pellet (Testopel) 75 mg SC [id number] Hormonal Agent 11/29/22
empagliflozin 10 mg tablet (Jardiance) 10 mg PO DAILY 06/30/24
insulin glargine 100 unit/mL (3 mL) subcutaneous pen (Lantus Solostar U-100 Insulin) 45 unit SC DAILY 06/30/24
Review of Systems
-
Constitutional: Reports Fatigue
EENT: Reports No Symptoms
Respiratory: Reports No Symptoms
Cardiac: Reports No Symptoms
Abdomen/GI: Reports No Symptoms (mild discomfort)
: Reports No Symptoms
Musculoskeletal: Reports No Symptoms
Skin: Reports No Symptoms
Neurological: Reports Dizzy and Weakness (generalized)
Endocrine: Reports No Symptoms
Hematologic/Lymphatic: Reports No Symptoms
Psych: Reports No Symptoms
Physical Exam
Vital Signs
Vital Signs
Temp Pulse Resp BP Pulse Ox
97.9 F 79 16 111/65 97
02/20/25 16:02 02/20/25 22:00 02/20/25 20:34 02/20/25 22:00 02/20/25 22:00
Physical Exam
General: Well Developed, Well Nourished, No Apparent Distress, Comfortable, Conversant and Morbidly Obese
HEENT: NormoCephalic, Moist mucous membranes, Atraumatic, [place] Conjunctivae, Nose Appears Normal and Ears Appear Normal
Respiratory: Clear and Non Labored Respirations
Cardiac: S1/S2, Regular Rhythm and Murmur; No Rub or Gallop
Breast: Deferred by me
GI: Soft, Non Tender and Normal Bowel Sounds; No Organomegaly
Rectal: Deferred by Provider
Genito-urinary: Deferred by me
Musculoskeletal: No Clubbing, No Cyanosis and No Edema
Skin: Warm and IV/Catheter Site; No Rash
Neuro: Awake, Alert, AO x 3 and Nonfocal/grossly intact
Psych: Calm and Intact Judgment/Insight
Laboratory Results
-
02/20/25 16:16
02/20/25 16:16
Laboratory Results
Total Bilirubin 1.2 mg/dl (0.2-1.3) 02/20/25 16:16
AST 51 U/L (17-59) 02/20/25 16:16
ALT 34 U/L (0-50) 02/20/25 16:16
Alkaline Phosphatase 46 U/L (38-126) 02/20/25 16:16
Data Reviewed
-
CT Scan: Report Reviewed by me
Medical Tests (Nuc Med, Echo, EKG etc): Image Personally Visualized and interpreted
Lab Data: Labs Reviewed by me
Old Records: Reviewed
Impression/Plan
-
IMPRESSION:
This is a 74-year-old with past medical history of insulin-dependent diabetes, pancreatitis, gallstone disease status post cholecystectomy presenting to the emergency department with dyspepsia/early satiety and reduced appetite as well as an episode
of weakness today and which resulted in him falling and having difficulty getting back up. Otherwise he has no focal neurological deficits. Labs in the ED mostly unremarkable except for mild hyponatremia. 8 his vital signs are stable. LFTs are
normal. ECG shows normal sinus rhythm and no acute ischemic changes. CT scan with suggestive of colitis of the descending sigmoid colon but patient without clear symptoms of diarrhea and no signs of systemic infection. Suspect giving history
possibility of infectious/viral enteritis/gastritis versus this acute colitis. Possibly developing gastroparesis but unlikely to make the diagnosis now
PLAN:
Colitis -based on CT scan finding, and abdominal symptoms although not classic given lack of diarrhea abdominal pain leukocytosis or abdominal tenderness.
-Admitted telemetry
- In the absence of diarrhea, will start IV antibiotic with ceftriaxone plus flagyl
- check lipase
- Monitor ins and outs and serial examination
- Continue gentle hydration overnight
- antiemetics prn
- continue ppi
- given atypical symptoms will consult GI for further evalaution
Dizziness/Weakness - suspect dehydration vs hypotension on multiple agents
- tele for now
- orthostatics, fluids and consider titation of bp meds if +
- check covid/flu
- IV fluids as above
- check tsh
Diabetes
- continue lantus 30 hs with sliding scale insulin
- continue jardiance
HTN
- continue spironolactone, labetolol,
DVT PPX - lovenox sq
Code status - Full Code
[2025-02-20 23:14] LABS: Urine Red Blood Cell 0-2 /HPF (0-2); Urine Squamous Cell >30 /LPF (Few)
[2025-02-20 23:15] LABS: Urine White Cell 26-30 /HPF (0-5)
[2025-02-20] MEDS: TYLENOL 650 MG PO (23:38)
[2025-02-20 23:49] VITALS: BP 123/76
[2025-02-21] VITALS (8 sets, daily range): BP systolic 78–122; BP diastolic 43–68; PULSE 87–106; BMI 27.5
--- NOTE | 2025-02-21 | PTCARENOTE ---
Full head-to-toe assessment and admission questionnaire completed. Patient is pleasant, comfortable, and oriented to unit. Call mendoza is within reach.
[2025-02-21] MEDS: HEPARIN 5000 UNITS SC ×4 (01:33→23:09)
[2025-02-21 01:44] LABS: COVID-19 Antigen Negative (Negative)
[2025-02-21] MEDS: NSS 1000 IV (01:44)
[2025-02-21] MEDS: FLAGYL 500 MG 100 IV ×3 (05:50→23:08)
[2025-02-21] MEDS: ROCEPHIN 1000 MG IV (05:51)
[2025-02-21] MEDS: STERILE WATER FOR INJECTION 10 ML IV (05:52)
[2025-02-21 07:07] LABS: Glucose - Point of Care 120 mg/dl (70-99)
[2025-02-21] MEDS: NOVOLOG FLEXPEN-LOW RESISTANCE SC ×2 (08:09→17:06)
[2025-02-21] MEDS: TRANDATE 400 MG PO (08:11)
[2025-02-21] MEDS: LIPITOR 20 MG PO (08:11)
[2025-02-21] MEDS: FOLVITE 1 MG PO (08:11)
[2025-02-21] MEDS: LANTUS 0.35 UNITS SC (08:11)
[2025-02-21] MEDS: FARXIGA 10 MG PO (08:11)
[2025-02-21] MEDS: ALDACTONE 25 MG PO (08:12)
[2025-02-21] MEDS: NSS (PRESERVATIVE FREE) 10 ML IV (08:12)
[2025-02-21] MEDS: PROTONIX IV 40 MG IV (08:12)
[2025-02-21 09:51] LABS: Hematocrit 30.3 % (39.0-52.0); Hemoglobin 10.1 g/dL (13.0-18.0); Mean Corp Hgb Conc. 33.3 g/dL (33.0-37.0); Mean Corpuscular Volume 94.7 fL (80.0-94.0); Platelet Count 106 10^3/uL (130-400); Red Cell Dist. Width 12.7 % (11.5-14.5)
[2025-02-21 10:16] LABS: Blood Urea Nitrogen 14 mg/dl (9-20); Calcium 8.0 mg/dl (8.4-10.2); Carbon Dioxide 15 mmol/L (22-30); Chloride 101 mmol/L (98-107); Estimated Creatinine Clearance 43 ml/min; Glucose 151 mg/dl (70-99); Magnesium 1.4 mg/dl (1.6-2.3); Potassium 3.8 mmol/L (3.5-5.1); Sodium 137 mmol/L (135-145); eGFR 52.74
[2025-02-21 10:20] LABS: C-Reactive Protein 21.30 mg/L (0.0-10.00)
[2025-02-21 10:51] LABS: TSH 2.33 uIU/ml (0.47-4.68)
[2025-02-21 11:18] LABS: Glucose - Point of Care 171 mg/dl (70-99)
[2025-02-21] MEDS: NOVOLOG FLEXPEN-LOW RESISTANCE 1 UNITS SC (11:29)
--- NOTE | 2025-02-21 11:34 | W.PN.HOSP.TC ---
Today's Communication/Plan
-
Cardiology consult
Echocardiogram
Orthostatic vital signs
Assessment / Plan
Assessment / Plan
Assessment:
This is a 74 y/o male with pmhx of insulin dependent diabetes, history of pancreatitis, and history of cholecystectomy who presented to the ED with a 1 week history of decreased appetite with nausea leading to weakness and dizziness culminating in a
fall without syncope.
PLAN:
Colitis of Descending Sigmoid Colon
History of Pancreatitis
Diverticulosis
-Per CT scan on 02/20: Findings suggesting colitis of the descending sigmoid colon. Limited evaluation without oral contrast. Hepatic and pancreatic fatty infiltration. Too small to characterize hypodense left renal lesion likely a benign cyst.
Diverticulosis. Mild prostate hypertrophy.
-No classic symptoms at this point as he is free of diarrhea, abdominal tenderness/pain
-Continue to monitor I's and O's
-Continue antiemetics as needed
-Continue antibiotics
-Continue PPI
-GI has been consulted by the admitting team, will appreciate their insight into his case.
-Encouraged eating food as tolerated
Dizziness/Weakness/Pre-Syncope
-Suspect dehydration vs hypotension vs worsened aortic stenosis
-Flu/Covid test negative
-Patient follows with [facility], placed consult today.
-Ordered Echo today, last Echo in 2023 showed worsening Aortic Stenosis (At that point moderate)
-Continue Telemetry
-Orthostatic vital signs ordered by admitting team
Insulin Dependent Diabetes Mellitus
-Continue 35 units of Lantus HS
-Continue Jardiance
Essential Hypertension
-Continue Spironolactone
-Continue Labetalol
DVT PPX - lovenox sq
Code status - Full Code
Anticipated Discharge: 24 - 48 hours
Subjective/Interval History
-
Date of Service: February 21, 2025
he
Patient reports that for the last few weeks he began to experience significantly decreased appetite with nausea but no vomiting. He began to eat less and less, and become very picky with what he was eating. This eventually led to him feeling more
dizzy/lightheaded. He states that he went to the bathroom when he became very dizzy and fell to the floor. He denies loss of consciousness. This fall was what prompted his visit to the ED.
He feels okay today. He is aware of his history of heart murmur, which he had followed up for previously with cardiology around a year ago. 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
Objective Data
-
Labs:
Laboratory Results
02/21/25
08:43
WBC 6.5
Hgb 10.1 L
Hct 30.3 L
Plt Count 106 L D
Sodium 137
Potassium 3.8
Chloride 101
Carbon Dioxide 15 L
BUN 14
Creatinine 1.4 H
Glucose 151 H
Calcium 8.0 L
Vital Signs:
Vital Signs
Temp Pulse Resp BP Pulse Ox
98.7 F 84 16 88/43 100
02/21/25 11:00 02/21/25 11:00 02/21/25 11:00 02/21/25 11:00 02/21/25 11:00
I&O
02/20/25 02/21/25 02/22/25
06:59 06:59 06:59
Intake Total 975 / 975
Balance 975 / 975
Review of Systems
-
History Source: Patient
Constitutional: Reports No Appetite; Denies Fever or Chills
Respiratory: Denies Cough or Trouble Breathing
Cardiac: Denies Chest Pain or Palpitations
Abdomen/GI: Reports Nausea; Denies Abdominal Pain or Vomiting
Neuro: Denies Dizzy or Weakness
Physical Exam
-
General: Well Developed, Well Nourished, No Apparent Distress and Comfortable
HEENT: Normocephalic and Atraumatic
Respiratory: Clear to Auscultation
Cardiac: Regular Rhythm, S1/S2 and Murmur (4/6, best heard over right 2nd intercostal space and Left 5th midclavicular line)
GI: Soft and Nontender
Skin: Warm and Dry
Neuro: Awake, Alert and Oriented
Psych: Calm
--- NOTE | 2025-02-21 14:04 | W.PN.UPDATE ---
Update Note
Progress Note Update
I saw and evaluated the patient with the residents..
HPI: 74 y/o male with PMH insulin dependent diabetes, history of pancreatitis, and history of cholecystectomy; p/w presyncope. He denies to GI symptoms, no change in BM etc.
A/P:
# Dizziness/Weakness/Pre-Syncope
Flu/Covid test negative
noted systolic murmur in exam, and with h/o , check repeat/update echo with card CS
Continue cardiac monitor
Check follow up Orthostatic vital signs for completeness sake
# Colitis of Descending Sigmoid Colon noted on CT AP although clinically pt is without GI symptoms
# History of Pancreatitis
CT scan on 02/20: Findings suggesting colitis of the descending sigmoid colon. Limited evaluation without oral contrast.
OK to cont short course Abx ceftriaxone/Flagyl x5 days total
GI was consulted by the admitting team due to atypical presentation
# Insulin Dependent Diabetes Mellitus
Continue decreased dose Lantus at 35 units HS (DYNAMITE CARTRIDGE CRIMPER 45 units HS)
Continue Farxiga
ISS coverage
# Essential Hypertension
Continue Spironolactone, Continue Labetalol, with holding parameters
DVT ppx: HSQ
FC
total time 51 min
--- NOTE | 2025-02-21 14:25 | CM ---
branch manager reviewed patient's chart and met with patient and patient lives with his spouse in a 2 story home with one step to enter, patient is independent with adl's and ambulation, no dme, patient drives, home when stable, no needs.
Plan; Home no needs when stable.
PCP: Dr Young
Pharmacy: [facility]
[2025-02-21] MEDS: NSS 500 IV (14:48)
[2025-02-21] MEDS: MAGNESIUM SULFATE 100 IV (14:48)
--- NOTE | 2025-02-21 15:07 | CON.GI ---
Consultation
-
Date/Time Consultation Requested: 02/21/2025
Date/Time Consultation Performed: 02/21/2025
Requesting Provider: Hospitalist
Performing Provider: Eulogio BELLO
Reason for Consultation: colitis
Medical History
Chief Complaint / HPI
Chief Complaint: Generalized weakness
History of Present Illness:
74-year-old male with below mentioned past medical history admitted to ED complaining of weakness/loss of appetite/dizziness/fall.
Patient claims his symptoms started 1 to 2 weeks back with poor appetite . He has been progressively getting weaker over the weeks and yesterday he felt lightheaded while using the toilet and had a fall. Denies any abdominal pain/vomiting. Bowel
movements were regular. Denies any blood or mucus with stool.
His sick with similar symptoms but has been improving this week.
Patient was evaluated earlier this year 06/2024 by GI team when he was admitted with pancreatitis secondary to gallstone and underwent ERCP/cholecystectomy
Past Medical History
Past Medical History: Other (essential hypertension hyperlipidemia DM II chronic anemia CKD II RBBB malignant melanoma (2000))
Past Surgical History: Other (Bilateral rotator cuff repair Colonoscopy 2020 EGD x2 2017 right detached retina repair 06/2021, 08/2021 bilateral cataract extraction )
Social History
Tobacco: Former Smoker
Alcohol: Daily
Drug: None
Allergies / Home Medications
Allergy/AdvReac Type Severity Reaction Status Date / Time
shrimp Allergy Swelling Verified 02/20/25 20:34
�Medication �Instructions �Recorded
labetalol 200 mg tablet 400 mg PO BID Blood Pressure 12/25/16
spironolactone 25 mg tablet 25 mg PO BID Blood Pressure 12/25/16
tadalafil 5 mg tablet (Cialis) 5 mg PO DAILYPRN PRN ED 12/25/16
omeprazole 20 mg tablet,delayed 20 mg PO DAILYPRN PRN reflux 06/09/17
release
atorvastatin 20 mg tablet 20 mg PO DAILY High Cholesterol 11/29/22
Held on 07/03/24.
Instructions: Resume on
07/09/24. hold until
outpatient LFT result is out
or further directed by your
PCP
cyanocobalamin (vitamin B-12) 1,000 mcg IM MONTHLY Supplement 11/29/22
1,000 mcg/mL injection solution
folic acid 1 mg tablet 1 mg PO DAILY Supplement 11/29/22
testosterone 75 mg implant pellet 75 mg SC [id number] Hormonal Agent 11/29/22
(Testopel)
empagliflozin 10 mg tablet 10 mg PO DAILY 06/30/24
(Jardiance)
insulin glargine 100 unit/mL (3 45 unit SC DAILY 06/30/24
mL) subcutaneous pen (Lantus
Solostar U-100 Insulin)
Review of Systems
Vital Signs
Temp Pulse Resp BP Pulse Ox
98.7 F 84 16 88/43 100
02/21/25 11:00 02/21/25 11:00 02/21/25 11:00 02/21/25 11:00 02/21/25 11:00
Physical Exam
Exam
General: Comfortable
Respiratory: Clear
Cardiac: S1/S2
GI: Soft, Non Tender and Non Distended
Results
WBC 6.5 10^3/uL (4.8-10.8) 02/21/25 08:43
Hgb 10.1 g/dL (13.0-18.0) L 02/21/25 08:43
Hct 30.3 % (39.0-52.0) L 02/21/25 08:43
MCV 94.7 fL (80.0-94.0) H 02/21/25 08:43
Plt Count 106 10^3/uL (130-400) L D 02/21/25 08:43
Absolute Neuts (auto) 5.5 10^3/uL (1.4-6.5) 02/20/25 16:16
Sodium 137 mmol/L (135-145) 02/21/25 08:43
Potassium 3.8 mmol/L (3.5-5.1) 02/21/25 08:43
Chloride 101 mmol/L (98-107) 02/21/25 08:43
Carbon Dioxide 15 mmol/L (22-30) L 02/21/25 08:43
BUN 14 mg/dl (9-20) 02/21/25 08:43
Creatinine 1.4 mg/dL (0.7-1.3) H 02/21/25 08:43
Calcium 8.0 mg/dl (8.4-10.2) L 02/21/25 08:43
Total Bilirubin 1.2 mg/dl (0.2-1.3) 02/20/25 16:16
AST 51 U/L (17-59) 02/20/25 16:16
ALT 34 U/L (0-50) 02/20/25 16:16
Alkaline Phosphatase 46 U/L (38-126) 02/20/25 16:16
Diagnostic Image Results:
Prior GI Procedures:
EGD: 10/2020 normal
Colonoscopy:
10/26/2020
Impression: - Three 4 mm polyps in the sigmoid colon, in the
transverse colon and at the ileocecal valve, removed
with a cold snare. Resected and retrieved. Path�transverse polyp was tubular adenoma. Other polyps Path were benign changes
- Diverticulosis in the sigmoid colon, in the
descending colon and in the ascending colon.
Assessment / Plan
-
74-year-old male with history of diabetes, CKD, hypertension, gallstone pancreatitis admitted with generalized weakness/poor appetite/dizziness for weeks. Patient's with similar symptoms. Denies any GI symptoms including abdominal
pain/diarrhea/vomiting. ED labs�no leukocytosis. Liver test normal. CT abdomen/pelvis with IV contrast was reported moderate wall thickening in the descending/proximal sigmoid colon suggestive of colitis although lack of oral contrast. Patient
had a colonoscopy with Dr. Sylvester in [place]. No evidence of colitis at that time.
Considering his clinical picture his symptoms likely secondary to viral infection other than colitis. I would not recommend any specific treatment for the CT finding at this point considering patient has no GI symptoms such as abdominal
pain/diarrhea to suggest colitis. There is a possibility of ischemic colitis with involvement of descending colon/sigmoid colon with episodes of hypotension but again patient does not have any GI symptoms to suggest that. Continue current care per
medical team with IV hydration and rule out other causes of sepsis if indicated. Hemodynamic stability. Check stool for infection if any diarrhea.
No further recommendation. Will sign off. Outpatient GI follow-up. please call us back if questions
Total Time Spent with Patient (in minutes): 55
-
-
Thank you for consultation and allowing me to participate in the patient's care. Please call the ammonia operator GI physician during the after hours with any questions or concerns.
[2025-02-21 17:07] LABS: Glucose - Point of Care 171 mg/dl (70-99)
--- NOTE | 2025-02-21 18:08 | CON.CAR ---
Consultation
Consultation Request
Date/Time Consultation Requested: 02/21/25
Date/Time Consultation Performed: 02/21/25
Requesting Provider: Dr Urrutia
Performing Provider: Dr Velasquez ( Primary cardio [facility])
Reason for Consultation: dizziness
Medical History
-
Chief Complaint: lightheadedness
History of Present Illness:
74-year-old gentleman with past medical history of diabetes, h/o pancreatitis, CKD 3B, hypertension, bifascicular block, hyperlipidemia and pSVT (follows with Dr Max) who presents for evaluation after a over a week of poor p.o. intake and early
satiety with dizziness, decreased appetite, fatigue and weakness. Symptoms of dizziness are worse when standing better with lying down. It will pass and then he will be able to walk around without LH. Of note, his had similar symptoms that
have since resolved. We are asked to evaluate given a history of SVT and aortic valve stenosis. Otherwise, he feels well. He has no cp or sob. No palpitations.
In evaluation, CT a/p: Bowel loops are normal caliber. The terminal ileum and appendix are within normal limits. There is moderate diverticulosis. Despite the lack oral contrast, there is the appearance of moderate wall thickening of the entire
descending colon and proximal sigmoid colon suggesting colitis.
Past Medical History
Past Medical History: IDDM, Renal Failure, Psychiatric and Other (Right bundle branch block, pancreatitis, chronic anemia,)
Social History
Tobacco: Former Smoker
Alcohol: Daily (scotch, couple a day)
Employment: Retired
Allergies / Home Medications
Allergy/AdvReac Type Severity Reaction Status Date / Time
shrimp Allergy Swelling Verified 02/20/25 20:34
�Medication �Instructions �Recorded �Confirmed �Type
labetalol 200 mg tablet 400 mg PO BID Blood Pressure 12/25/16 02/20/25 History
spironolactone 25 mg tablet 25 mg PO BID Blood Pressure 12/25/16 02/20/25 History
tadalafil 5 mg tablet (Cialis) 5 mg PO DAILYPRN PRN ED 12/25/16 02/20/25 History
omeprazole 20 mg tablet,delayed 20 mg PO DAILYPRN PRN reflux 06/09/17 02/20/25 History
release
atorvastatin 20 mg tablet 20 mg PO DAILY High Cholesterol 11/29/22 02/20/25 History
Held on 07/03/24.
Instructions: Resume on
07/09/24. hold until
outpatient LFT result is out
or further directed by your
PCP
cyanocobalamin (vitamin B-12) 1,000 mcg IM MONTHLY Supplement 11/29/22 02/20/25 History
1,000 mcg/mL injection solution
folic acid 1 mg tablet 1 mg PO DAILY Supplement 11/29/22 02/20/25 History
testosterone 75 mg implant pellet 75 mg SC [id number] Hormonal Agent 11/29/22 02/20/25 History
(Testopel)
empagliflozin 10 mg tablet 10 mg PO DAILY 06/30/24 02/20/25 History
(Jardiance)
insulin glargine 100 unit/mL (3 45 unit SC DAILY 06/30/24 02/20/25 History
mL) subcutaneous pen (Lantus
Solostar U-100 Insulin)
Review of Systems
-
All other systems: Negative unless noted
Physical Exam
Vital Signs
Temp Pulse Resp BP Pulse Ox
98.4 F 91 12 91/53 98
02/21/25 15:00 02/21/25 15:00 02/21/25 15:00 02/21/25 15:00 02/21/25 15:00
Lab Results
02/21/25 08:43
02/21/25 08:43
Physical Exam
General: Well Developed, Well Nourished, No Apparent Distress and Comfortable
Respiratory: Clear; Negative Wheezes, Crackles or Rhonchi
Cardiac: S1/S2, Regular Rhythm, Murmur (2/6 systolic murmur) and Peripheral Edema; Negative Rub
GI: Soft, Non Tender and Non Distended
Musculoskeletal: No Clubbing, No Cyanosis and No Edema
Neuro: AO x 3
Impression / Plan
-
Dizziness/weakness: seems linked to po poor intake and orthostatic in nature. is certainly a consideration given LH, but it is typically exertional.
-continue IVF
-will update echo
: moderate on echo, will update echo
-can update in short term follow up as op if plan is for discharge tomorrow.
pSVT: no further complaint
Colitis: GI evaluation reviewed, suspect viral etiolgy, improving
RBBB: LAFB
HTN: chronic
TTE: 01/22/24 CONCLUSIONS
Normal left ventricular size and systolic function.
LV ejection fraction is 65-70%
Moderate aortic stenosis. Peak gradient 40 mmHg and a mean gradient of 20 mmHg
Dilated aortic root 4.2 cm.
When compared to previous report from 12/11/2019 the aortic stenosis has
increased in severity. Previously patient with aortic sclerosis and a peak
gradient of 17 and a mean gradient of 9 mmHg
Data Reviewed
-
EKG: Tracing Personally Visualized and interpreted (sinus rbb and lbb)
[2025-02-21] MEDS: ALDACTONE PO (20:06)
[2025-02-21] MEDS: TRANDATE PO (20:08)
[2025-02-21 21:28] LABS: Glucose - Point of Care 142 mg/dl (70-99)
[2025-02-22 03:34] VITALS: BP 107/62
[2025-02-22 03:58] LABS: Glucose - Point of Care 62 mg/dl (70-99)
[2025-02-22 04:22] LABS: Glucose - Point of Care 85 mg/dl (70-99)
[2025-02-22] MEDS: STERILE WATER FOR INJECTION 10 ML IV (05:15)
[2025-02-22] MEDS: ROCEPHIN 1000 MG IV (05:15)
[2025-02-22] MEDS: FLAGYL 500 MG 100 IV (05:24)
[2025-02-22 06:32] LABS: Glucose - Point of Care 204 mg/dl (70-99)
[2025-02-22 06:59] LABS: Hematocrit 27.6 % (39.0-52.0); Hemoglobin 9.5 g/dL (13.0-18.0); Mean Corp Hgb Conc. 34.4 g/dL (33.0-37.0); Mean Corpuscular Volume 91.7 fL (80.0-94.0); Platelet Count 104 10^3/uL (130-400); Red Cell Dist. Width 12.9 % (11.5-14.5)
[2025-02-22 07:00] VITALS: BP 116/66
--- NOTE | 2025-02-22 07:20 | W.PN.HOSP.TC ---
Today's Communication/Plan
-
Discharge planning
Assessment / Plan
Assessment / Plan
Assessment:
This is a 74 y/o male with pmhx of insulin dependent diabetes, history of pancreatitis, and history of cholecystectomy who presented to the ED with a 1 week history of decreased appetite with nausea leading to weakness and dizziness culminating in a
fall without syncope.
PLAN:
Colitis of Descending Sigmoid Colon
History of Pancreatitis
Diverticulosis
-Per CT scan on 02/20: Findings suggesting colitis of the descending sigmoid colon. Limited evaluation without oral contrast. Hepatic and pancreatic fatty infiltration. Too small to characterize hypodense left renal lesion likely a benign cyst.
Diverticulosis. Mild prostate hypertrophy.
-No classic symptoms at this point as he is free of diarrhea, abdominal tenderness/pain
-Continue to monitor I's and O's
-Continue antiemetics as needed
-Continue PPI
-GI has been consulted by the admitting team, will appreciate their insight into his case. Per their review, it seems more viral changes rather than bacterial. Will plan to d/c antibiotics on discharge.
-Encouraged eating food as tolerated
Dizziness/Weakness/Pre-Syncope
Hypotension
-Suspect dehydration vs hypotension vs worsened aortic stenosis
-Flu/Covid test negative
-Patient's Blood pressure has been soft this admission, decreased home dose of Labetalol and Spironolactone on 02/21 to 200mg BID and 12.5mg BID respectively
-Consulted Cardiology on 02/21/2025. Plan for patient to have outpatient Echocardiogram and follow up outpatient with them, as his dizziness and weakness are significantly improved
-Last Echo in 2023 showed worsening Aortic Stenosis (At that point moderate)
-Will discharge patient on decreased dose of Labetalol (200mg BID instead of 400mg BID) and Spironolactone (12.5mg BID instead of 25mg BID)
Insulin Dependent Diabetes Mellitus
-Continue 35 units of Lantus HS
-Continue Jardiance
Essential Hypertension
-Continue Spironolactone
-Continue Labetalol
DVT PPX - lovenox sq
Code status - Full Code
Anticipated Discharge: Today
Subjective/Interval History
-
Date of Service: February 22, 2025
Patient was ambulating back from the bathroom when I arrived using his walker. He was able to transition to bed independently. He reports he feels much better today than yesterday, and his dizziness and weakness are significantly improved. He still
has a somewhat decreased appetite, but has been eating more foods since yesterday. He continues to be free of fevers, chills, abdominal pain, diarrhea or constipation.
Objective Data
-
Labs:
Laboratory Results
02/22/25
06:44
WBC 4.9
Hgb 9.5 L
Hct 27.6 L
Plt Count 104 L
Sodium Pending
Potassium Pending
Chloride Pending
Carbon Dioxide Pending
BUN Pending
Creatinine Pending
Glucose Pending
Calcium Pending
Vital Signs:
Vital Signs
Temp Pulse Resp BP Pulse Ox
98.9 F 89 12 107/62 98
02/22/25 03:34 02/22/25 03:34 02/22/25 03:34 02/22/25 03:34 02/22/25 03:34
I&O
02/21/25 02/22/25 02/23/25
06:59 06:59 06:59
Intake Total 1335 / 1335
Balance 1335 / 1335
Review of Systems
-
History Source: Patient
Constitutional: Denies Fever or Chills
Respiratory: Denies Cough or Trouble Breathing
Cardiac: Denies Chest Pain
Abdomen/GI: Denies Abdominal Pain, Nausea, Vomiting, Diarrhea or Constipated
Neuro: Denies Dizzy, Headache, Weakness or Lightheadedness
Physical Exam
-
General: Well Developed, Well Nourished, No Apparent Distress and Comfortable
HEENT: Normocephalic and Atraumatic
Respiratory: Clear to Auscultation
Cardiac: Regular Rhythm, S1/S2 and Murmur (3/6 Systolic (best heard over right 2nd intercostal space and Left 5th midclavicular line))
GI: Soft, Nontender, Nondistended and Normal Bowel Sounds
Skin: Warm and Dry
Neuro: Awake, Alert, Oriented and Other (Ambulates independently with walker without any signs of shortness of breath)
Psych: Calm
[2025-02-22 07:45] LABS: Blood Urea Nitrogen 11 mg/dl (9-20); Calcium 8.2 mg/dl (8.4-10.2); Carbon Dioxide 25 mmol/L (22-30); Chloride 104 mmol/L (98-107); Estimated Creatinine Clearance 47 ml/min; Glucose 184 mg/dl (70-99); Magnesium 2.1 mg/dl (1.6-2.3); Potassium 3.5 mmol/L (3.5-5.1); Sodium 136 mmol/L (135-145); eGFR 57.65
[2025-02-22] MEDS: FARXIGA 10 MG PO (08:36)
[2025-02-22] MEDS: TRANDATE 200 MG PO (08:36)
[2025-02-22] MEDS: LIPITOR 20 MG PO (08:37)
[2025-02-22] MEDS: FOLVITE 1 MG PO (08:37)
[2025-02-22] MEDS: ALDACTONE 12.5 MG PO (08:37)
[2025-02-22] MEDS: HEPARIN 5000 UNITS SC (08:37)
[2025-02-22 08:39] LABS: Glucose - Point of Care 186 mg/dl (70-99)
[2025-02-22] MEDS: NSS (PRESERVATIVE FREE) 10 ML IV (08:39)
[2025-02-22] MEDS: PROTONIX IV 40 MG IV (08:39)
[2025-02-22] MEDS: LANTUS 0.35 UNITS SC (08:41)
[2025-02-22] MEDS: NOVOLOG FLEXPEN-LOW RESISTANCE 1 UNITS SC (08:41)
[2025-02-22] MEDS: KCL 40 MEQ PO (08:43)
--- NOTE | 2025-02-22 10:44 | W.DCSUMMARY ---
Documented by User: Lore Saldaña , Resident 02/22/25 12:40
Discharge Summary
Discharge Data
Date of Admission: 02/20/25
Date of Discharge: 02/22/25
-
Pending Results: No
Hospital Course
Discharging Physician : Dr. Urrutia
Disposition : Good
Primary care physician : Geoffrey Young MD
Principal Discharge diagnosis : Dizziness, Weakness and Pre-Syncope; Possible colitis noted on CT Scan
Chronic Discharge diagnosis : Insulin Dependent Diabetes Mellitus, Essential Hypertension, History of Pancreatitis, History of Cholecystectomy
Hospital Course :
This is a 74 y/o male with pmhx of insulin-dependent diabetes, Moderate Aortic Stenosis noted on 2023 echocardiogram, Essential Hypertension, history of pancreatitis and history of cholecystectomy who presented to the ED on 02/20 with 1 week of
early satiety, poor appetite and increased dizziness leading to a fall in the bathroom without losing consciousness. His helped him to his feet, and transported him to the emergency department.
In the ED he was afebrile with BP of 111/65, heart rate of 79. EKG showed normal sinus rhythm with right bundle branch block, unchanged from prior. His sodium was 132, creatinine was at baseline at 1.5. UA was contaminated by many epithelial cells.
CT Abdomen/Pelvis results showed bowel loops normal in caliber. The terminal ileum and appendix are within normal limits. Moderate diverticulosis. Despite lack of oral contrast, there is the appearance of moderate wall thickening of the entire
descending colon and proximal sigmoid colon suggesting colitis. He was started on ceftriaxone and IV metronidazole and admitted for further management.
On 02/21 his symptoms improved with gentle hydration, and he tolerated more food. He remained on telemetry without any incidents of dizziness or weakness. Because of long-standing moderate stenosis and no recent Echo, Cardiology was consulted.
Notably, his blood pressures were low throughout the day, so his home dose of Labetalol 400mg BID was reduced to 200mg BID and his home dose of Spironolactone 25mg BID was reduced to 12.5mg BID. He continued to improve throughout the day, until on
02/22 he was found to be medically stable and discharged to home. He will follow up outpatient for an Echocardiogram, and follow up with his PCP in less than 1 week for repeat blood pressure checks and medication adjustments.
Important imaging findings :
CT Scan Abdomen/Pelvis 02/20: Findings suggesting colitis of the descending sigmoid colon. Limited evaluation without oral contrast. Hepatic and pancreatic fatty infiltration. Too small to characterize hypodense left renal lesion likely a benign
cyst.Diverticulosis. Mild prostate hypertrophy.
Procedure findings : N/a
Discharge Plan
-
Patient Disposition: Home (Routine Discharge)
Discharge Diagnosis/Procedures: Dizziness, Weakness and Pre-Syncope;
Possible colitis noted on CT Scan;
Insulin Dependent Diabetes Mellitus
Essential Hypertension
Condition: Good
Diet: As tolerated and Diabetic, Carb Controlled
Activity: No restrictions
Driving Restrictions: As prior to admission
Bathing Restrictions: None
Others Tests: You should meet with your Cloth Shrinker, Dr. Max, to have an Echocardiogram completed
Referrals:
Roosevelt Max MD [Active, Cardiology]
Geoffrey Young MD [Family Provider, Internal Medicine] - in less than 1 week
Additional Discharge Medication Instructions: Thank you for visiting [facility]. There have been some adjustments to your medications.
Your blood pressure was noted to be low in the hospital. As such, please note the following dose changes:
Your dose of Spironolactone has decreased from 25 mg twice daily to 12.5mg twice daily.
Your dose of Labetalol was decreased from 200 mg twice daily to 100 mg twice daily.
Please follow up with your primary care physician to have your blood pressure rechecked and your medication dosages adjusted accordingly.
Prescriptions:
New
spironolactone 25 mg Tablet
12.5 mg PO BID Qty: 60 0RF
Continued
tadalafil [Cialis] 5 MG tablet
5 mg PO DAILYPRN PRN (Reason: ED)
omeprazole 20 mg Tablet,Delayed Release (/Ec)
20 mg PO DAILYPRN PRN (Reason: reflux)
atorvastatin 20 mg Tablet
20 mg PO DAILY
Testopel 75 mg Pellet
75 mg SC [id number]
cyanocobalamin (vitamin B-12) 1,000 mcg/mL solution
1,000 mcg IM MONTHLY
folic acid 1 mg tablet
1 mg PO DAILY
Jardiance 10 mg Tablet
10 mg PO DAILY
insulin glargine [Lantus Solostar U-100 Insulin] 100 unit/mL (3 mL) Insulin Pen
45 unit SC DAILY Qty: 0 0RF
Rx Instructions:
takes in am
Changed
labetalol 200 MG tablet
200 mg PO BID Qty: 60 0RF
Discontinued
spironolactone 25 MG tablet
25 mg PO BID
Discharge Orders:
Discharge Patient (As Directed); Ordered 02/22/25
Ordered By: Lore Saldaña
Discharge Date and Time
Discharge Date/Time: 02/22/25 12:29
Print Language: GEORGIAN

Documented by User: Tri Urrutia MD 02/22/25 12:54
Discharge Summary
Discharge Data
Date of Admission: 02/20/25
Date of Discharge: 02/22/25
Discharge Plan
-
Patient Disposition: Home (Routine Discharge)
Discharge Diagnosis/Procedures: Dizziness, Weakness and Pre-Syncope;
Possible colitis noted on CT Scan;
Insulin Dependent Diabetes Mellitus
Essential Hypertension
Condition: Good
Diet: As tolerated and Diabetic, Carb Controlled
Activity: No restrictions
Driving Restrictions: As prior to admission
Bathing Restrictions: None
Others Tests: You should meet with your Cloth Shrinker, Dr. Max, to have an Echocardiogram completed
Referrals:
Roosevelt Max MD [Active, Cardiology]
Geoffrey Young MD [Family Provider, Internal Medicine] - in less than 1 week
Additional Discharge Medication Instructions: Thank you for visiting [facility]. There have been some adjustments to your medications.
Your blood pressure was noted to be low in the hospital. As such, please note the following dose changes:
Your dose of Spironolactone has decreased from 25 mg twice daily to 12.5mg twice daily.
Your dose of Labetalol was decreased from 200 mg twice daily to 100 mg twice daily.
Please follow up with your primary care physician to have your blood pressure rechecked and your medication dosages adjusted accordingly.
Prescriptions:
New
spironolactone 25 mg Tablet
12.5 mg PO BID Qty: 60 0RF
Continued
tadalafil [Cialis] 5 MG tablet
5 mg PO DAILYPRN PRN (Reason: ED)
omeprazole 20 mg Tablet,Delayed Release (Dr/Ec)
20 mg PO DAILYPRN PRN (Reason: reflux)
atorvastatin 20 mg Tablet
20 mg PO DAILY
Testopel 75 mg Pellet
75 mg SC [id number]
cyanocobalamin (vitamin B-12) 1,000 mcg/mL solution
1,000 mcg IM MONTHLY
folic acid 1 mg tablet
1 mg PO DAILY
Jardiance 10 mg Tablet
10 mg PO DAILY
insulin glargine [Lantus Solostar U-100 Insulin] 100 unit/mL (3 mL) Insulin Pen
45 unit SC DAILY Qty: 0 0RF
Rx Instructions:
takes in am
Changed
labetalol 200 MG tablet
200 mg PO BID Qty: 60 0RF
Discontinued
spironolactone 25 MG tablet
25 mg PO BID
Discharge Orders:
Discharge Patient (As Directed); Ordered 02/22/25
Ordered By: Lore Saldaña
Discharge Date and Time
Discharge Date/Time: 02/22/25 12:29
Print Language: GEORGIAN
[2025-02-22 11:00] VITALS: BP 123/72
--- NOTE | 2025-02-22 11:51 | CM ---
Met with patient at bedside; he reported that will provide transport home
Plan: Discharge to home; no needs
--- NOTE | 2025-02-22 12:11 | W.PN.UPDATE ---
Update Note
Progress Note Update
I saw and evaluated the patient with the residents..
HPI: 74 y/o male with PMH insulin dependent diabetes, history of pancreatitis, and history of cholecystectomy; p/w presyncope. He denies to GI symptoms, no change in BM etc.
A/P:
# Dizziness/Weakness/Pre-Syncope, symptom resolved, possibly 2/2 orthostatic hypotension
Orthostatic positive,
[facility] labetalol and Aldactone decreased: Labetalol from 400 BID to 200 BID, Aldactone from 25 mg BID to 12.5 mg BID
Noted Flu/Covid test negative
Noted systolic murmur in exam, d/w card, recc outpt eval with echo
No telemetry event noted
# Possible colitis of descending sigmoid colon noted on CT AP although clinically pt is without GI symptoms
# History of Pancreatitis
CT scan on 02/20: Findings suggesting colitis of the descending sigmoid colon. Limited evaluation without oral contrast.
Possible viral
No need to cont further Abx with no GI symptoms
Appreciate GI input
# Suspect asymptomatic bacteruria
pt without urinary symptoms
Noted urine culture grew CONS, likely contaminant
# Insulin Dependent Diabetes Mellitus
reume [employer] [employer] [employer] Lantus 45 units HS following DC
Continue Farxiga
ISS coverage
# Essential Hypertension
[facility] [employer] labetalol and Aldactone decreased: Labetalol from 400 BID to 200 BID, Aldactone from 25 mg BID to 12.5 mg BID
BP improved with adjustment
Follow up with PCP for BP monitoring
DVT ppx: HSQ
FC
DC time 40 min
--- NOTE | 2025-02-22 13:17 | W.PN.CD ---
Today's Communication / Plan
-
ok for dc home
I have sent message to my office to arrange echo and follow up
Impression / Plan
-
Dizziness/weakness: seems linked to po poor intake and orthostatic in nature. is certainly a consideration given LH, but it is typically exertional.
-improved with po intake and IVF
-will arrange for op echo in short term follow up
: moderate on echo, will update echo
-can update in short term follow up as op, patient agreeable
pSVT: no further complaint
Colitis: GI evaluation reviewed, suspect viral etiolgy, improving
RBBB: LAFB
HTN: chronic
TTE: 01/22/24 CONCLUSIONS
Normal left ventricular size and systolic function.
LV ejection fraction is 65-70%
Moderate aortic stenosis. Peak gradient 40 mmHg and a mean gradient of 20 mmHg
Dilated aortic root 4.2 cm.
When compared to previous report from 12/11/2019 the aortic stenosis has
increased in severity. Previously patient with aortic sclerosis and a peak
gradient of 17 and a mean gradient of 9 mmHg
Physical Exam
Vital Signs/Labs
Vital Signs
Temp Pulse Resp BP Pulse Ox
98.4 F 81 18 123/72 98
02/22/25 11:00 02/22/25 11:00 02/22/25 11:00 02/22/25 11:00 02/22/25 11:00
02/21/25 02/22/25 02/23/25
06:59 06:59 06:59
Actual Weight 175 lb 4 oz
02/22/25 06:44
02/22/25 06:44
Magnesium 2.1 mg/dl (1.6-2.3) 02/22/25 06:44
TSH 2.33 uIU/ml (0.47-4.68) 02/21/25 08:43
Physical Exam
Constitutional: No acute distress
Cardiovascular: Rhythm & rate is regular, Pedal edema is absent, JVD pressure is normal and Systolic murmur present (2/6 crescendo decrescendo, normal A2)
Respiratory: Respiratory effort normal, Lungs clear to auscul., Wheeze Absent, Crackles Absent and Rhonchi Absent
Neuro/Psych: AO x 3
Data Reviewed
-
Date of Service: February 22, 2025
Medical Decision Making: Review of Case with other Provider (Dr Urrutia and Dr Saldaña, will arrange op echo ok for dc)
== END 2025-02-22 12:29 | disposition home or self-care (01) ==
LOC: 4 WEST ACU 23:56
PROVIDERS: Emergency Medicine; Physician Assistant; Student in an Organized Health Care Education/Training Program; ADMITTING PHYSICIAN Internal Medicine; ATTENDING PHYSICIAN Internal Medicine; CONSULT PHYSICIAN Internal Medicine Cardiovascular Disease; CONSULT PHYSICIAN Internal Medicine Gastroenterology; EMERGENCY PHYSICIAN Emergency Medicine; FAMILY PHYSICIAN Internal Medicine
DX: K52.9 Noninfective gastroenteritis and colitis, unspecified (principal); R10.9 Unspecified abdominal pain; E87.1 Hypo-osmolality and hyponatremia; E11.22 Type 2 diabetes mellitus with diabetic chronic kidney disease; I12.9 Hypertensive chronic kidney disease with stage 1 through stage 4 chronic kidney disease, or unspecified chronic kidney disease; E78.00 Pure hypercholesterolemia, unspecified; R42 Dizziness and giddiness; R63.0 Anorexia; R68.81 Early satiety; R26.2 Difficulty in walking, not elsewhere classified; N18.4 Chronic kidney disease, stage 4 (severe); R55 Syncope and collapse; K76.0 Fatty (change of) liver, not elsewhere classified; N40.0 Benign prostatic hyperplasia without lower urinary tract symptoms; K57.30 Diverticulosis of large intestine without perforation or abscess without bleeding; I45.10 Unspecified right bundle-branch block; I35.0 Nonrheumatic aortic (valve) stenosis; I95.9 Hypotension, unspecified; W18.39XA Other fall on same level, initial encounter; Y93.89 Activity, other specified; Y92.002 Bathroom of unspecified non-institutional (private) residence as the place of occurrence of the external cause; Z79.84 Long term (current) use of oral hypoglycemic drugs; Z79.899 Other long term (current) drug therapy; Z90.49 Acquired absence of other specified parts of digestive tract; Z85.820 Personal history of malignant melanoma of skin; Z87.891 Personal history of nicotine dependence; Z83.3 Family history of diabetes mellitus; Z82.49 Family history of ischemic heart disease and other diseases of the circulatory system; Z82.71 Family history of polycystic kidney; Z79.4 Long term (current) use of insulin; Z98.41 Cataract extraction status, right eye; Z98.42 Cataract extraction status, left eye; Z91.013 Allergy to seafood; Z87.19 Personal history of other diseases of the digestive system; Z11.52 Encounter for screening for COVID-19; Z79.890 Hormone replacement therapy; Z86.79 Personal history of other diseases of the circulatory system; Z86.0100 Personal history of colon polyps, unspecified
CPT/HCPCS: 74177; 80048; 80053; 81003; 81015; 82962; 83735; 84443; 85025; 85027; 86140; 87070; 87086; 87147; 87186; 87811; 93005; 96361; 96365; 99285; G0378; Q9967

== ENCOUNTER → 2025-02-24 09:54 | Outpatient (REF) | payer MEDICARE, OTHER, SELFPAY | LOC: RCS 09:54 | PROVIDERS: ATTENDING PHYSICIAN Internal Medicine Cardiovascular Disease; FAMILY PHYSICIAN Internal Medicine | DX: I35.0 Nonrheumatic aortic (valve) stenosis (principal); R42 Dizziness and giddiness | CPT/HCPCS: 93306 ==